=== PATIENT | female | born 1955 | race Caucasian/White ===

== ENCOUNTER 2018-01-13 15:38 | Emergency (ER) | payer OTHER ==
[2018-01-13] MEDS ORDERED: Albuterol 2.5 MG/3 ML NEB.SOL* (0.083%) INH ONE (16:02)
[2018-01-13] MEDS ORDERED: Ipratropium 0.5MG/2.5ML NEB* 0.5 MG/2.5 ML NEB.SOLN INH ONE (16:02)
--- NOTE | 2018-01-13 16:08 | UC ---
Shortness of Breath HPI - HPI Summary HPI Summary: The patient is a 62-year-old diabetic that presents here with a 3-4 day history of progressively worsening cough and shortness of breath. She states that she has obstructive sleep apnea and uses oxygen at home through her CPAP machine. Today she began to get very dyspneic and started using her oxygen during the day. He denies any fever or chills. Has been productive at times. She has had at times some left-sided chest pain below her left breast. Lat PM she had bilateral leg pain. She denies having COPD or asthma. She does state that her EKG has been abnormal in the past however she has never had one done at our institution. - History of Current Complaint Stated Complaint: DIFFICULTY BREATHING,DIZZY,COUGH Time Seen by Provider: 01/13/18 15:56 Hx Obtained From: Patient Onset/Duration: Gradual Onset, Lasting Days, Worse Since - today Current Severity: Moderate Dyspnea At: Rest Aggrevating Factors: Movement, Recumbent Position Alleviating Factors: Oxygen Associated Signs & Symptoms: Positive: Cough (Productive), Chest Pain Unrelated to Cough, Dizzy Related History: Obesity - Allergy/Home Medications Allergies/Adverse Reactions: Allergies Allergy/AdvReac Type Severity Reaction Status Date / Time No Known Allergies Allergy Verified 01/13/18 16:11 Home Medications: Home Medications Aspirin EC TAB* [Ecotrin EC Low Dose 81 MG*] 81 mg PO DAILY 01/13/18 [History Confirmed 01/13/18] Atorvastatin* [Lipitor 40 MG*] 1 tab PO BEDTIME 01/13/18 [History Confirmed 04/20] Duloxetine HCl [Cymbalta] 60 mg PO BID 01/13/18 [History Confirmed 01/13/18] Fenofibrate(NF) [Tricor(NF)] 145 mg PO DAILY 01/13/18 [History Confirmed ] Hydrochlorothiazide TAB* [Hydrodiuril TAB*] 12.5 mg PO DAILY 01/13/18 [History Confirmed 01/13/18] Inulin/Chromium Picolinate [Fiber Gummies] 2 tab PO BID 01/13/18 [History Confirmed 01/13/18] L.acidoph,Paracasei, B.lactis [Probiotic] 1 each PO DAILY 01/13/18 [History Confirmed 01/13/18] Multivitamin [Multivitamins] 1 tab PO DAILY 01/13/18 [History Confirmed 01/13/18 ] OLANzapine TAB* [Zyprexa 5 MG TAB*] 5 mg PO DAILY 01/13/18 [History Confirmed ] Oxybutynin TAB* [Ditropan TAB*] 1 tab PO BID 01/13/18 [History Confirmed ] Propranolol TAB* [Inderal TAB*] 1 tab PO BID 01/13/18 [History Confirmed ] Sitagliptin Phos/Metformin HCl [Janumet 50-1000 mg] 1 tab PO BID 01/13/18 [ History Confirmed 01/13/18] celeCOXIB CAP* [Celebrex CAP*] 1 tab PO BID 01/13/18 [History Confirmed 01/13/18 ] glyBURIDE TAB* [Diabeta TAB*] 5 mg PO DAILY 01/13/18 [History Confirmed 01/13/18 ] PMH/Surg Hx/FS Hx/Imm Hx Previously Healthy: No - TEMITOPE Endocrine History: Diabetes, Dyslipidemia Cardiovascular History: Hypertension Respiratory History: Pneumonia - Family History Known Family History: Positive: Hypertension, Diabetes Review of Systems Constitutional: Fatigue Skin: Negative Eyes: Negative ENT: Negative Respiratory: Shortness Of Breath, Cough Cardiovascular: Chest Pain - intermittently Gastrointestinal: Negative Genitourinary: Negative Motor: Negative Neurovascular: Negative Musculoskeletal: Negative Neurological: Negative Psychological: Negative All Other Systems Reviewed And Are Negative: Yes Physical Exam Triage Information Reviewed: Yes Appearance: No Pain Distress, Other: - BMI>50 Vital Signs Reviewed: Yes Eyes: Positive: Conjunctiva Clear ENT: Positive: Hearing grossly normal. Negative: Nasal drainage, Trismus, Muffled voice, Hoarse voice Neck: Positive: Supple, Nontender, No Lymphadenopathy Respiratory: Positive: Respiratory distress, Crackles - right base, Wheezing - right apex. Negative: No respiratory distress Cardiovascular: Positive: RRR, No Murmur Musculoskeletal: Positive: Edema @ - pretibial Neurological: Positive: Alert Psychological Exam: Normal Skin Exam: Normal Diagnostics - Laboratory Diagnostic Studies Completed/Ordered: FS>300 - EKG Cardiac Rate: NL Cardiac Rhythm: Sinus: Normal Ectopy: None ST Segment: Non-Specific Shortness of Breath Dx - Course Course Of Treatment: fells better on O2. unsure if neb is helping. d/w Dr Cornell. to [facility] ED via EMS - Differential Dx/Diagnosis Provider Diagnoses: cough/dyspnea/hypoxia of uncertain cause Discharge - Sign-Out/Discharge Documenting (check all that apply): Patient Departure All imaging exams completed and their final reports reviewed: No Studies - Discharge Plan Condition: Guarded Disposition: TRANS HIGHER LVL OF CARE FAC Referrals: No Primary Care Phys,NOPCP [Primary Care Provider] - - Billing Disposition and Condition Condition: GUARDED Disposition: Trans Higher Lvl of Care Fac
[2018-01-13 16:44] VITALS: BP 117/64
== END 2018-01-13 16:53 | disposition short-term general hospital (02) ==
LOC: UCEAST 15:38
DX: R05 Cough (principal); R06.00 Dyspnea, unspecified; R09.02 Hypoxemia; R07.9 Chest pain, unspecified; E11.9 Type 2 diabetes mellitus without complications; E78.5 Hyperlipidemia, unspecified; G47.33 Obstructive sleep apnea (adult) (pediatric); Z79.4 Long term (current) use of insulin; Z79.84 Long term (current) use of oral hypoglycemic drugs; Z99.89 Dependence on other enabling machines and devices
CPT/HCPCS: 93005; 99214; G0463

== ENCOUNTER 2018-01-13 17:04 | Inpatient (IN) | payer OTHER ==
[2018-01-13] MEDS ORDERED: Albuterol/Ipratropium NEB.SOL* Albuterol 2.5 MG/Ipratropium 0.5 MG 3 ML INH ONE (17:25)
[2018-01-13] MEDS ORDERED: Azithromycin IV(*) 500 MG in NS 0.9% 250 ML* 250 ML IVPB ONE (17:28)
[2018-01-13] MEDS ORDERED: methylPREDNISolone 125 MG* 2 ML VIAL IV ONE (17:28)
[2018-01-13] MEDS ORDERED: cefTRIAXone(*) 1 GM in NS 0.9% 50 ML* 50 ML IVPB ONE (17:28)
[2018-01-13] MEDS ORDERED: Aspirin 81 mg CHEW TAB* 81 MG TAB.CHEW PO ONE (17:43)
--- NOTE | 2018-01-13 17:47 | ED ---
Shortness of Breath - HPI Summary HPI Summary: This patient is a 62 year old F presenting to [facility] accompanied by her daughter with a chief complaint of SOB since 01/10/18. Pt endorses bilateral upper and lower extremity myalgia 2 days ago, continuously elevating blood glucose levels , cough, and intermittent resolved right anterior chest tightness (01/11/18) with associated diaphoresis. She denies abd pain, diarrhea, constipation, current CP or calf pain, and urinary sx. She notes that home O2 administration that she restarted 01/11/18 did not do much to alleviate sx, but a breathing tx at did help sx. Pt notes her cough aggravates sx. Pt notes that she was given 02 for episode of hypoxia a few years ago, but then stopped because she felt no sx until just recently. She denies PMHx DVT or PE, and she endorses PMHx DM, HLD, and HTN. - History of Current Complaint Chief Complaint: EDShortnessOfBreath Time Seen by Provider: 01/13/18 17:20 Hx Obtained From: Patient Onset/Duration: Gradual Onset, Lasting Days, Still Present Timing: Constant Current Severity: Moderate Dyspnea At: Rest Aggrevating Factors: Nothing Alleviating Factors: Oxygen, Other - breathing tx Associated Signs & Symptoms: Cough (Nonproductive), Chest Pain Unrelated to Cough - tightness, resolved, Diaphoresis, Calf Pain/Swelling - bilateral, resolved Related History: Obesity - Allergy/Home Medications Allergies/Adverse Reactions: Allergies Allergy/AdvReac Type Severity Reaction Status Date / Time No Known Allergies Allergy Verified 01/13/18 16:11 PMH/Surg Hx/FS Hx/Imm Hx Endocrine/Hematology History: Reports: Hx Diabetes - niDDm Denies: Hx Thyroid Disease Cardiovascular History: Reports: Hx Hypercholesterolemia, Hx Hypertension Respiratory History: Denies: Hx Asthma, Hx Chronic Obstructive Pulmonary Disease (COPD) GI History: Denies: Hx Ulcer Sensory History: Denies: Hx Legally Blind, Hx Deafness Opthamlomology History: Denies: Hx Legally Blind EENT History: Denies: Hx Deafness Psychiatric History: Denies: Hx Autism, Hx Schizophrenia - Surgical History Surgery Procedure, Year, and Place: BILATERAL KNEE REPLACEMENT. PARTICIAL HYSTER. CHOLECYSTEMY. TONSILLECTOMY. HEMMRHOIDECTOMY. CPAP AT NIGHT Infectious Disease History: No Infectious Disease History: Denies: Hx Hepatitis, Hx Human Immunodeficiency Virus (HIV), Traveled Outside the [place] in Last 30 Days - Family History Known Family History: Positive: Hypertension, Diabetes - Social History Occupation: Disabled Alcohol Use: Rare Substance Use Type: Reports: None Smoking Status (MU): Former Smoker Review of Systems Positive: Skin Diaphoresis Positive: Chest Pain Positive: Shortness Of Breath, Cough Negative: Abdominal Pain, Diarrhea Positive: no symptoms reported Positive: Myalgia - bilateral upper and lower extremities, resolved All Other Systems Reviewed And Are Negative: Yes Physical Exam - Summary Physical Exam Summary: General: well-appearing, no pain distress Skin: warm, color reflects adequate perfusion, dry Head: normal Eyes: EOMI, AN ENT: normal Neck: supple, non-tender Respiratory: Wheezing at bases, breath sounds present Cardiovascular: RRR Abdomen: soft, non-tender Bowel: present Musculoskeletal: normal, strength/ROM intact Neurological: sensory/motor intact, A&O x3 Psychological: affect/mood appropriate Triage Information Reviewed: Yes Vital Signs On Initial Exam: Initial Vitals Resp 26 01/13/18 17:09 Vital Signs Reviewed: Yes Diagnostics - Vital Signs Vital Signs Temp Pulse Resp BP Pulse Ox 01/13/18 17:34 62 20 92 01/13/18 17:13 97.9 F 74 18 167/80 90 01/13/18 17:10 64 28 167/80 92 01/13/18 17:09 26 - Laboratory Result Diagrams: 01/13/18 17:57 01/13/18 17:57 Lab Statement: Any lab studies that have been ordered have been reviewed, and results considered in the medical decision making process. - Radiology CXR Xray Interpretation: Positive (See Comments) Radiology Interpretation Completed By: ED Physician - Infiltrate on right side. Pending official report. - CT CTA Chest/thorax CT Interpretation: Positive (See Comments) CT Interpretation Completed By: Radiologist - . No visible acute pulmonary embolism but there is limited evaluation of subsegmental branches of the arteries because of respiratory motion artifact. 2. There is bilateral lung opacity, particularly in the right lower lobe, suspicious for pneumonitis and/ or pulmonary edema. 3. There is mild mediastinal lymphadenopathy. Dr. Cornell has reviewed this report. - EKG 1737 Cardiac Rate: NL - 62 EKG Rhythm: Sinus Rhythm Ectopy: None EKG Interpretation: non-specific intraventricular conduction delay, flipped T waves in antleads Re-Evaluation - Re-Evaluation First Eval Re-Evaluation Time: 18:58 Change: Unchanged Comment: Discussed (+) lab results and XR, PNA, admission. O2 sat at 92%. Course/Dx - Course Course Of Treatment: ADMIT HOSPITALIST. 30ML/KG BOLUS NOT GIVEN IN ED DUE TO CONCERN OF CHF THE CAUSE OF HYPOXIA. CRITICAL CARE TIME LESS THAN 30 MINUTES. - Diagnoses Provider Diagnoses: Pneumonia - Physician Notifications Discussed Care of Patient With: Vika Falk Time Discussed With Above Provider: 19:00 Instructed by Provider To: Other - Accepts admission. Discharge - Sign-Out/Discharge Documenting (check all that apply): Patient Departure - admit - Discharge Plan Condition: Fair Disposition: ADMITTED TO [facility] - Billing Disposition and Condition Condition: FAIR Disposition: Admitted to [facility] - Attestation Statements Document Initiated by Scribe: Yes Documenting Scribe: Julien Collazo Provider For Whom Conniee is Documenting (Include Credential): Dr. Garrick Cornell MD Scribe Attestation: Julien Schneider, scribed for Dr. Garrick Cornell MD on 01/13/18 at 2204. Scribe Documentation Reviewed: Yes Provider Attestation: The documentation as recorded by the Julien colvin accurately reflects the service I personally performed and the decisions made by me, Dr. Garrick Cornell MD
[2018-01-13 18:19] LABS: ABS Basophils 0 10^3/ul (0-0.2); ABS Eosinophils 0.1 10^3/ul (0-0.6); ABS Lymphocytes 0.7 10^3/ul (1.0-4.8); ABS Monocytes 0.6 10^3/ul (0-0.8); ABS Neutrophils 7.5 10^3/ul (1.5-7.7); ABS Nucleated RBC 0 10^3/ul; Eosinophil % 1.4 % (0-6); Hematocrit 35 % (35-47); Hemoglobin 11.8 g/dl (12.0-16.0); Lymphocyte % 8.1 % (25-47); Mean Corpuscular HGB Conc 33 g/dl (31-36); Mean Corpuscular Hemoglobin 28 pg (27-31); Mean Corpuscular Volume 83 fL (80-97); Mean Platelet Volume 8.3 um3 (7.4-10.4); Nucleated Red Blood Cells % 0; Platelet Count 275 10^3/ul (150-450); Red Blood Count 4.24 10^6/ul (4.00-5.40); Red Cell Distribution Width 14 % (10.5-15); White Blood Count 9.1 10^3/ul (3.5-10.8)
[2018-01-13 18:28] LABS: INR 1.14 (0.77-1.02)
[2018-01-13 18:39] LABS: EGFR Non-African American 71.2 (>60)
[2018-01-13] MEDS ORDERED: Magnesium Sulfate 2 GM IV* 2 GM/50 ML BAG IVPB ONE (18:51)
[2018-01-13] MEDS ORDERED: Iodixanol* (CONTRAST) 320 MG/ML 100 ML SDV IV ONE (19:19)
[2018-01-13] MEDS ORDERED: Albuterol 2.5 MG/3 ML NEB.SOL* (0.083%) INH PRN (19:52)
[2018-01-13] MEDS ORDERED: Dextrose 50% Syringe 50 ML* 25 GM/50 ML SYRINGE IV PUSH PRN ×2 (19:57)
--- NOTE | 2018-01-13 20:03 | RAD ---
EXAM: CT Angiography Chest With Intravenous Contrast CLINICAL HISTORY: 62 years old, female; Signs and symptoms; Shortness of breath; Patient HX: R/O pe; Additional info: SOB, positive ddimer TECHNIQUE: Axial computed tomographic angiography images of the chest with intravenous contrast using pulmonary embolism protocol. All CT scans at this facility use at least one of these dose optimization techniques: automated exposure control; mA and/or kV adjustment per patient size (includes targeted exams where dose is matched to clinical indication); or iterative reconstruction. MIP reconstructed images were created and reviewed. Coronal and sagittal reformatted images were created and reviewed. CONTRAST: 96 mL of VISI 320 administered intravenously. COMPARISON: No relevant prior studies available. FINDINGS: Pulmonary arteries: No visible acute pulmonary embolism but there is limited evaluation of subsegmental branches of the arteries because of respiratory motion artifact. Aorta: There are atherosclerotic aortic and coronary artery calcifications. No thoracic aortic aneurysm. Lungs: There is bilateral lung opacity, particularly in the right lower lobe suspicious for pneumonitis and/or pulmonary edema. Pleural space: Unremarkable. No significant effusion. No pneumothorax. Heart: See above. Bones/joints: There are degenerative changes of the spine. No acute fracture. No dislocation. Soft tissues: Unremarkable. Lymph nodes: There is mild mediastinal lymphadenopathy. Spleen: There is splenomegaly. IMPRESSION: 1. No visible acute pulmonary embolism but there is limited evaluation of subsegmental branches of the arteries because of respiratory motion artifact. 2. There is bilateral lung opacity, particularly in the right lower lobe, suspicious for pneumonitis and/or pulmonary edema. 3. There is mild mediastinal lymphadenopathy.
[2018-01-13] MEDS ORDERED: Ondansetron INJ* 2 MG/ML VIAL IV PRN (20:11)
[2018-01-13] MEDS ORDERED: Senna TAB PO PRN (20:11)
[2018-01-13] MEDS ORDERED: Docusate CAP* 100 MG PO PRN (20:11)
[2018-01-13] MEDS ORDERED: Acetaminophen TAB* 325 MG PO PRN (20:11)
[2018-01-13] MEDS ORDERED: Al Hydrox/Mg Hydrox/Simet LIQ* 30 ML UDC PO PRN (20:11)
[2018-01-13] MEDS ORDERED: Insulin GLARGINE(*) 1 UNITS UNIT SUBCUT SCH (21:00)
--- NOTE | 2018-01-13 22:11 | HP ---
CC: [facility].* HISTORY AND PHYSICAL: DATE OF ADMISSION: 01/13/18 TIME OF EVALUATION: 1999. PRIMARY CARE PHYSICIAN: [facility]. CHIEF COMPLAINT: Shortness of breath. HISTORY OF PRESENT ILLNESS: This is a 62-year-old female with past medical history of diabetes, hypertension, obstructive sleep apnea who presented to the emergency room from urgent care with shortness of breath for the past 2 days. The patient states a year and a half ago, she had a similar presentation where she became short of breath and was admitted to [place] and they said it was not pneumonia or COPD, but she was discharged home on oxygen at that time. She has not needed oxygen since that hospitalization; however, for the past 2 days, she has been shortness of breath and dizzy. Today, it was worse where she was short of breath at rest. She has been congested with productive cough with sick contacts. She takes care of her grandchildren who have also been sick. Patient does state she is known to choke and aspirate on foods. She had a swallow evaluation several years ago that was unremarkable. She had the oxygen from her prior admission, so started using that again that did help somewhat. Last evening, she had full body aches and pins and needles throughout the night with difficulty sleep, which seems resolved in the morning. No fevers or chills. No nausea, vomiting, diarrhea. No abdominal pain. No urinary symptoms. No lower extremity swelling. No changes in her weight. Otherwise, review of systems is negative. The patient denies using inhalers in the past or having any issues with her lungs. In the emergency room, the patient had labs, imaging. She was given Solu-Medrol 125 mg, 2 g of magnesium, ceftriaxone 1 g, azithromycin 500 mg, aspirin 324 mg, and a DuoNeb and was referred to the hospitalist service for further evaluation. The patient states she feels somewhat better after her breathing treatment. PAST MEDICAL HISTORY: 1. Diabetes. 2. Hypertension. 3. Obstructive sleep apnea, on CPAP setting of 2. 4. Hyperlipidemia. 5. Arthritis. 6. Depression. MEDICATIONS: 1. Propranolol 40 mg p.o. b.i.d. 2. Oxybutynin 5 mg p.o. b.i.d. 3. Atorvastatin 40 mg daily at bedtime. 4. Celebrex 100 mg p.o. b.i.d. 5. Glyburide 5 mg daily. 6. Janumet one tab p.o. b.i.d. 7. Olanzapine 5 mg daily. 8. Multivitamin daily. 9. Probiotic daily. 10. Fiber Gummies 2 tablets p.o. b.i.d. 11. Hydrochlorothiazide 12.5 mg p.o. daily. 12. Fenofibrate 145 mg p.o. daily. 13. Cymbalta 60 mg p.o. b.i.d. 14. Aspirin 81 mg daily. ALLERGIES: No known drug allergies. SOCIAL HISTORY: The patient lives with her daughter, Carola Vines, and her grandson. She is independent of her ADLs. She was a remote smoker in her teenage years, light smoker. No history of alcohol or illicit drug use. She watches her young 3 grandchildren. Code status, full code. FAMILY HISTORY: Mother at age 55 from complications postoperatively with a PE. Father , unknown. REVIEW OF SYSTEMS: A 14-point review of systems as mentioned in the HPI, otherwise negative. PHYSICAL EXAMINATION GENERAL: In no acute distress, mildly ill appearing with her daughter sitting at the bedside. VITAL SIGNS: Temp 97.9, pulse rate 70, respiratory rate 14, oxygen saturation 93% on 4 L, blood pressure 144/77. HEENT: Head: Normocephalic. Pupils are equal and reactive. Oropharynx: Mucous membranes are moist. Positive postnasal drip noted. NECK: Supple. No lymphadenopathy. RESPIRATORY: Coarse rhonchorous breath sounds bilaterally with bilateral expiratory wheezing audible, adventitious lung sounds. CARDIAC: Regular rate and rhythm. Soft systolic murmur heard throughout. ABDOMEN: Morbidly obese, soft, nontender, nondistended. EXTREMITIES: Chronic varicosities in her bilateral lower extremities. No asymmetry. Trace edema. +2 DPs. NEUROLOGICAL: Alert and oriented x3. No gross focal neurologic deficits. LABORATORY DATA: White count 9.1, hemoglobin 11.8, hematocrit 35, platelets 275. INR is 1.14. D-dimer is 1003. Sodium 136, potassium 3.5, chloride 96, bicarb 31, BUN 18, creatinine 0.81, glucose 278. Calcium 10.4. Magnesium 1.5. Total bili 1.2, AST 53, ALT 81, alk phos 123. CRP is 345. BNP is 266. TSH 1.73. RADIOGRAPHIC DATA: Chest x-ray shows opacity in the right middle lobe with some mild interstitial markings. CTA of the chest, no visible acute pulmonary embolism, but there is limited evaluation in the subsegmental branches of the arteries because of respiratory motion artifact. There is bilateral lung opacities particularly in the right lower lobe suspicious for pneumonitis and/ or pulmonary edema. There is mild mediastinal lymphadenopathy. EKG shows normal sinus rhythm, inverted T waves and nonspecific T wave changes. ASSESSMENT AND PLAN: This is a 62-year-old female with a past medical history of diabetes, hypertension who presents to the emergency room with acute onset of shortness of breath in the setting of cough, congestion, and sick contacts. 1. Shortness of breath. Assessment: Her CTA does not show a significant PE, but does show bilateral lung opacities suspicious for pneumonitis and/or pulmonary edema. This is likely aspiration pneumonitis/pneumonia with her history with possible concomitant congestive heart failure. Plan: We will admit her to telemetry. We will continue to trend her troponin. Check an echocardiogram. We will limit her fluid intake and hold off on further IVFs. We will obtain a sputum culture and follow up on the blood cultures. Continue her on ceftriaxone, azithromycin and add flagyl. I am going to continue on prednisone and albuterol nebulizer. May benefit from diuresis, but we will hold off at this time as she appears comfortably lying flat in the gurney. We will also check an echocardiogram. We will hold off on continuing IV fluids. Will order speech therapy swallow eval and esophagram to assess for microaspiration/macroaspiration 2. Transaminitis. I suspect this may be due to GAONA versus hepatic congestion as she does have underlying pulmonary edema. As mentioned, we will check an echo and repeat her liver enzymes in the morning. 3. Elevated calcium. We will repeat this in the morning. 4. Chronic medical problems. Diabetes. She has an elevated glucose this evening. We will start her on Lantus. Check a hemoglobin A1c and place her on a lispro sliding scale. 5. Hypertension. Blood pressures are controlled. We will hold her hydrochlorothiazide for now in the setting of infectious etiology. I will continue her propranolol. 6. Hyperlipidemia. We will continue her Lipitor. Check a lipid panel in the morning. Continue her oxybutynin. 7. Depression. Continue her Cymbalta. 8. FEN. The patient is on diabetic diet. 9. DVT prophylaxis. She scores high risk. We will place her on heparin subcu t.i.d. 10. Code status: Full code. PATIENT TIME: Greater than 60 minutes were spent doing the history and physical , more than half the time spent in direct patient contact. [id number]/CPS #: [id number] [place]
[2018-01-13] MEDS: metroNIDAZOLE IV 500 MG/100ML* 500 MG/100 ML BAG IVPB SCH (22:51)
[2018-01-13] MEDS: Heparin VIAL(*) 5000 UNITS/ML VIAL (FIVE THOUSAND) SUBCUT SCH (22:57)
[2018-01-13] MEDS: DULoxetine DR CAP* 30 MG CAP.DR PO SCH (23:00)
[2018-01-13] MEDS: Oxybutynin TAB* 5 MG PO SCH (23:00)
[2018-01-13] MEDS: Atorvastatin* 40 MG TAB PO SCH (23:00)
[2018-01-13] MEDS: Propranolol TAB* 40 MG PO SCH (23:01)
[2018-01-13] MEDS: celeCOXIB CAP* 100 MG PO SCH (23:02)
[2018-01-14] MEDS: Heparin VIAL(*) 5000 UNITS/ML VIAL (FIVE THOUSAND) SUBCUT SCH ×3 (06:16→21:03)
[2018-01-14 06:26] LABS: ABS Basophils 0 10^3/ul (0-0.2); ABS Eosinophils 0 10^3/ul (0-0.6); ABS Lymphocytes 0.4 10^3/ul (1.0-4.8); ABS Monocytes 0.3 10^3/ul (0-0.8); ABS Neutrophils 9.1 10^3/ul (1.5-7.7); ABS Nucleated RBC 0 10^3/ul; Eosinophil % 0.1 % (0-6); Hematocrit 34 % (35-47); Hemoglobin 11.4 g/dl (12.0-16.0); Lymphocyte % 4.3 % (25-47); Mean Corpuscular HGB Conc 33 g/dl (31-36); Mean Corpuscular Hemoglobin 28 pg (27-31); Mean Corpuscular Volume 83 fL (80-97); Mean Platelet Volume 8.5 um3 (7.4-10.4); Nucleated Red Blood Cells % 0; Platelet Count 294 10^3/ul (150-450); Red Blood Count 4.13 10^6/ul (4.00-5.40); Red Cell Distribution Width 14 % (10.5-15); White Blood Count 9.8 10^3/ul (3.5-10.8)
[2018-01-14 06:44] LABS: EGFR Non-African American 95.1 (>60)
--- NOTE | 2018-01-14 07:31 | RAD ---
INDICATION: Shortness of breath. COMPARISON: None. TECHNIQUE: Single AP portable view of the chest was obtained. FINDINGS: Image quality is compromised due to the relative inferiority of a portable chest x-ray. There is a mild degree of cardiomegaly. There are patchy densities obscuring the bilateral lung bases. There is bilateral costophrenic angle blunting. The pulmonary vasculature is mildly engorged and indistinct. Visualized bones are normal for the patient's age. IMPRESSION: Depending on the patient's clinical presentation chest x-ray findings could be consistent with cardiogenic pulmonary edema versus multifocal pneumonia. R1
[2018-01-14] MEDS: Insulin LISPRO* 1 UNITS UNIT SUBCUT SCH ×6 (07:47→18:09)
[2018-01-14] MEDS: metroNIDAZOLE IV 500 MG/100ML* 500 MG/100 ML BAG IVPB SCH (07:48)
[2018-01-14] MEDS ORDERED: Insulin LISPRO* 1 UNITS UNIT SUBCUT ONE ×3 (08:00→17:59)
[2018-01-14] MEDS: celeCOXIB CAP* 100 MG PO SCH (08:10)
[2018-01-14] MEDS: Oxybutynin TAB* 5 MG PO SCH ×2 (08:13→21:06)
[2018-01-14] MEDS: DULoxetine DR CAP* 30 MG CAP.DR PO SCH ×2 (08:13→21:05)
[2018-01-14] MEDS: Propranolol TAB* 40 MG PO SCH ×2 (08:14→21:06)
[2018-01-14] MEDS: OLANzapine TAB* 5 MG PO SCH (08:14)
[2018-01-14] MEDS: Aspirin EC TAB* 81 MG TAB.EC PO SCH (08:14)
--- NOTE | 2018-01-14 08:26 | PN ---
Subjective Date of Service: 01/14/18 Interval History: Ms. Mohinder roe Objective Active Medications: Acetaminophen (Tylenol Tab*) 650 mg PO Q4H PRN Al Hydrox/Mg Hydrox/Simethicone (Maalox Plus*) 30 ml PO Q6H PRN Albuterol (Ventolin 2.5 Mg/3 Ml Neb.Gail*) 2.5 mg INH Q2H PRN Aspirin (Aspirin Ec Tab*) 81 mg PO DAILY SUAD Atorvastatin Calcium (Lipitor*) 40 mg PO BEDTIME SUAD Celecoxib (Celebrex Cap*) 100 mg PO BID SUAD Dextrose (D50w Syringe 50 Ml*) 12.5 gm IV PUSH .FOR FS < 60 - SS PRN Docusate Sodium (Colace Cap*) 100 mg PO BID PRN Duloxetine HCl (Cymbalta Cap*) 60 mg PO BID SUAD Heparin Sodium (Porcine) (Heparin Vial(*)) 5,000 units SUBCUT Q8HR SUAD Ceftriaxone Sodium 1 gm/ (Sodium Chloride) 50 mls @ 200 mls/hr IVPB Q24H SUAD Azithromycin 250 mg/ Sodium (Chloride) 250 mls @ 250 mls/hr IVPB Q24H SUAD Metronidazole/Sodium Chloride (Flagyl 500 Mg Ivpb*) 500 mg in 100 mls @ 100 mls /hr IVPB 0200,1000,1800 SUAD Insulin Glargine (Lantus(*)) 10 units SUBCUT Q24H SUAD Insulin Human Lispro (Humalog*) 0 units SUBCUT AC SUAD; Protocol Insulin Human Lispro (Humalog*) 0 units SUBCUT AC SUAD; Protocol Olanzapine (Zyprexa Tab*) 5 mg PO DAILY SUAD Ondansetron HCl (Zofran Inj*) 4 mg IV Q4H PRN Oxybutynin Chloride (Ditropan Tab*) 5 mg PO BID SUAD Prednisone (Deltasone Tab*) 40 mg PO DAILY SUAD Propranolol HCl (Inderal Tab*) 40 mg PO BID SUAD Senna (Senokot Tab*) 1 tab PO BID PRN Vital Signs: Temp Pulse Resp BP Pulse Ox 97.4 F 68 20 130/66 93 01/14/18 07:27 01/14/18 08:12 01/14/18 07:27 01/14/18 07:27 01/14/18 07:27 Oxygen Devices in Use Now: Nasal Cannula Appearance: Female Result Diagrams: 01/14/18 06:16 01/14/18 06:16 Assess/Plan/Problems-Billing Assessment: Ms. Vines is a 62 yo F with a PMH of DM, HTN, and TEMITOPE who was admitted with community acquired pneumonia. - Patient Problems (1) SOB (shortness of breath) Comment: - Suspect community acquired pneumonia based on CT chest findings and symptoms, no evidence of aspiration. - Appreciate ID consult. Plan for ceftriaxone and azithromcyin. - Wean O2 as tolerated. (2) Diabetes Comment: - BGs 400s, likely due to steroids, steroids d/c'd. - Continue lispro SSI coverage. Glyburide held. (3) Hypertension Comment: - SBP 130s. - Continue propanolol. (4) Hyperlipidemia Comment: - Atorvastatin. (5) DVT prophylaxis Comment: - Heparin SQ. (6) Full code status Comment:
[2018-01-14] MEDS ORDERED: predniSONE TAB* 20 MG PO SCH (09:00)
[2018-01-14] MEDS ORDERED: metroNIDAZOLE IV 500 MG/100ML* 500 MG/100 ML BAG IVPB SCH (10:00)
[2018-01-14] MEDS: cefTRIAXone(*) 1 GM in NS 0.9% 50 ML* 50 ML IVPB SCH (10:15)
[2018-01-14 10:22] LABS: Urine Appearance Cloudy; Urine Blood Negative (Negative); Urine Color Yellow; Urine Ketones Trace (Negative); Urine Protein 1+(30 mg/dL) (Negative); Urine Red Blood Cell Trace(0-2/hpf) (Absent); Urine Urobilinogen Negative (Negative); Urine White Blood Cell Trace(0-5/hpf) (Absent)
[2018-01-14] MEDS: Azithromycin IV(*) 250 MG in NS 0.9% 250 ML* 250 ML IVPB SCH (11:00)
--- NOTE | 2018-01-14 15:41 | ECHO ---
Patient: VICKY BABB [facility] Rec#: [id number] : 1955 Date: 01/14/2018 Age: 62y Height: 160 cm / 63.0 in Weight: 159 kg / 350.4 lbs Sex: F BSA: 2.45 Room#: 434 Admit Date#: 01/13/2018 Type: Inpatient Referring: Vika Falk Reading: Jolie Thapa MD Mononitrotoluene Operator: Sharron Aguila RDCS,RDMS Transthoracic Echocardiogram Indication: CHF BP: 113/61 HR: 65 Rhythm: NSR Findings History: DM, HTN, HLD Technical Comments: The study quality is fair. Left Ventricle: The left ventricular chamber size is normal. Mild concentric left ventricular hypertrophy is observed. The estimated ejection fraction is 50-55%. There is septal flattening of the interventricular septum consistent with right ventricular volume or pressure overload. There is no consistent Doppler evidence of clinically significant diastolic dysfunction. Left Atrium: The left atrium is mildly dilated. Right Ventricle: The right ventricle is mild to moderately dilated. The right ventricular global systolic function is normal. Right Atrium: The right atrium is mild to moderately dilated. Aortic Valve: The aortic valve leaflets are mildly thickened. There is no evidence of aortic regurgitation. There is mild aortic stenosis. Mitral Valve: There is mitral annular calcification. The mitral valve leaflets are mildly thickened. There is a trace of mitral regurgitation. There is no evidence of mitral stenosis. Tricuspid Valve: The tricuspid valve leaflets are normal. There is no evidence of tricuspid valve regurgitation. Unable to estimate the right ventricular systolic pressure. Pulmonic Valve: There is no evidence of pulmonic valve thickening. There is a trace pulmonic regurgitation. Pericardium: There is no significant pericardial effusion. Aorta: There is mild dilatation of the ascending aorta. There is no dilatation of the aortic arch. The aortic root is normal in size. Pulmonary Artery: The main pulmonary artery is not well visualized. Venous: The inferior vena cava is dilated. There is less than 50% respiratory change in the inferior vena cava dimension. Summary: There was not any prior study for comparison. Conclusions The left ventricular chamber size is normal. Mild concentric left ventricular hypertrophy is observed. The estimated ejection fraction is 50-55%. There is septal flattening of the interventricular septum consistent with right ventricular volume or pressure overload. There is no consistent Doppler evidence of clinically significant diastolic dysfunction. The left atrium is mildly dilated. The right ventricle is mild to moderately dilated. The right atrium is mild to moderately dilated. There is mild aortic stenosis. There is a trace of mitral regurgitation. There is no evidence of tricuspid valve regurgitation. Unable to estimate the right ventricular systolic pressure. There is mild dilatation of the ascending aorta. Measurements Name Value Normal Range RVIDd (AP) 2D 3.8 cm (0.9 - 2.6) RVDdMajor (2D) 3.7 cm (2.2 - 4.4) RAd ISD 4CH 5.8 cm (3.4 - 4.9) RA (A4C)W 3.7 cm (2.9 - 4.6) IVSd (2D) 1.2 cm (0.6 - 1) LVPWd (2D) 1.3 cm (0.6 - 1) LVIDd (2D) 4.5 cm (3.6 - 5.4) LVIDs (2D) 3.3 cm - LV FS (2D) 37 % (25 - 45) Aortic Annulus 2 cm (1.4 - 2.6) Ao root diameter (2D) 2.7 cm (2.1 - 3.5) Ascending Ao 3.7 cm (2.1 - 3.4) Aortic arch 3.1 cm (1.8 - 3.4) LA dimension (AP) 2D 4.2 cm (2.3 - 3.8) LAd ISD 4CH 5.5 cm (2.9 - 5.3) LA ISD 4CH W 4.5 cm (2.5 - 4.5) Name Value Normal Range LA ESV BP (A/L) index 29 ml/m2 - Name Value Normal Range MV E-wave Vmax 1.2 m/sec - MV deceleration time 306 msec - MV A-wave Vmax 0.9 m/sec - MV E:A ratio 1.3 ratio - LV septal e' Vmax 0.07 m/sec - LV lateral e' Vmax 0.08 m/sec - LV E:e' septal ratio 17 ratio - LV E:e' lateral ratio 15 ratio - Name Value Normal Range AV Vmax 2.4 m/sec - AV VTI 60 cm - AV peak gradient 23 mmHg - AV mean gradient 13 mmHg - LVOT diameter 2 cm - LVOT Vmax 1.2 m/sec - LVOT VTI 31.5 cm - LVOT peak gradient 6 mmHg - LVOT mean gradient 4 mmHg - DOI (VTI) 0.5 ratio - ZACHERY (continuity Vmax) 1.6 cm2 - ZACHERY (continuity VTI) 1.6 cm2 - ALISHA Vmax 0.7 m/sec - Name Value Normal Range MV Vmax 1.4 m/sec - MV VTI 48 cm - MV peak gradient 8 mmHg - MV mean gradient 3 mmHg - MV PHT 114 msec - MVA (PHT) 1.9 cm2 - MVA (continuity VTI) 2.1 cm2 - Name Value Normal Range IVC diameter 2.3 cm - Name Value Normal Range PV Vmax 0.7 m/sec - PV peak gradient 2 mmHg -
[2018-01-14] MEDS ORDERED: Dextrose 50% Syringe 50 ML* 25 GM/50 ML SYRINGE IV PUSH PRN (16:59)
--- NOTE | 2018-01-14 18:13 | PN ---
Subjective Date of Service: 01/14/18 Interval History: Ms. Vines states that she is feeling better today. She is short of breath with a cough and is requiring oxygen but does feel better. She denies chest pain. She is tolerating oral intake well. Objective Active Medications: Acetaminophen (Tylenol Tab*) 650 mg PO Q4H PRN Al Hydrox/Mg Hydrox/Simethicone (Maalox Plus*) 30 ml PO Q6H PRN Albuterol (Ventolin 2.5 Mg/3 Ml Neb.Gail*) 2.5 mg INH Q2H PRN Aspirin (Aspirin Ec Tab*) 81 mg PO DAILY SUAD Atorvastatin Calcium (Lipitor*) 40 mg PO BEDTIME SUAD Dextrose (D50w Syringe 50 Ml*) 12.5 gm IV PUSH .FOR FS < 60 - SS PRN Docusate Sodium (Colace Cap*) 100 mg PO BID PRN Duloxetine HCl (Cymbalta Cap*) 60 mg PO BID SUAD Heparin Sodium (Porcine) (Heparin Vial(*)) 5,000 units SUBCUT Q8HR SUAD Ceftriaxone Sodium 1 gm/ (Sodium Chloride) 50 mls @ 200 mls/hr IVPB Q24H SUAD Azithromycin 250 mg/ Sodium (Chloride) 250 mls @ 250 mls/hr IVPB Q24H SUAD Insulin Glargine (Lantus(*)) 15 units SUBCUT Q24H SUAD Insulin Human Lispro (Humalog*) 0 units SUBCUT AC SUAD; Protocol Insulin Human Lispro (Humalog*) 0 units SUBCUT AC SUAD; Protocol Olanzapine (Zyprexa Tab*) 5 mg PO DAILY SUAD Ondansetron HCl (Zofran Inj*) 4 mg IV Q4H PRN Oxybutynin Chloride (Ditropan Tab*) 5 mg PO BID SUAD Propranolol HCl (Inderal Tab*) 40 mg PO BID SUAD Senna (Senokot Tab*) 1 tab PO BID PRN Vital Signs: Temp Pulse Resp BP Pulse Ox 98.1 F 53 24 120/58 93 01/14/18 15:18 01/14/18 15:18 01/14/18 15:18 01/14/18 15:18 01/14/18 15:18 Oxygen Devices in Use Now: Nasal Cannula Appearance: Female sitting up in bed, eating dinner in NAD Eyes: No Scleral Icterus Ears/Nose/Mouth/Throat: Mucous Membranes Moist Neck: Trachea Midline Respiratory: Symmetrical Chest Expansion and Respiratory Effort, - - Musical tones and rhonchi in right middle lobe, otherwise clear Cardiovascular: NL Sounds; No Murmurs; No JVD, No Edema Abdominal: NL Sounds; No Tenderness; No Distention Lymphatic: No Cervical Adenopathy Extremities: No Edema Skin: No Rash or Ulcers Neurological: Alert and Oriented x 3, NL Muscle Strength and Tone Nutrition: Taking PO's Result Diagrams: 01/14/18 06:16 01/14/18 06:16 Microbiology and Other Data: Microbiology 01/14/18 09:55 Legionella Urinary Antigen - Final Urine Negative Legionella Antigen Streptococcus pneumoniae Ag Screen - Final Negative S. pneumo Antigen Assess/Plan/Problems-Billing Assessment: Ms. Vines is a 62 yo F with a PMH of DM, HTN, and TEMITOPE who was admitted with community acquired pneumonia. - Patient Problems (1) SOB (shortness of breath) Comment: - Suspect atypical pneumonia based on CT chest findings and symptoms. - Appreciate speech eval, no evidence of aspiration on bedside swallow. Does have history of globus sensation and food sticking in her esophagus that she will cough up. Will order swallow function xray for further eval. - Appreciate ID consult. Plan for ceftriaxone and azithromcyin. - Wean O2 as tolerated. (2) Diabetes Comment: - BGs 400s, likely due to steroids, steroids d/c'd. HgbA1c 7.2. - Continue lispro SSI coverage and lantus (not on lantus routinely). Glyburide held. (3) Hypertension Comment: - SBP 130s. - Continue propanolol. (4) Hyperlipidemia Comment: - Continue atorvastatin. (5) DVT prophylaxis Comment: - Heparin SQ. (6) Full code status Comment: Status and Disposition: Inpatient. Anticipate discharge to home when medically.
--- NOTE | 2018-01-14 19:47 | CONS ---
CONSULTATION REPORT: DATE OF CONSULT: 01/14/18 REQUESTING PHYSICIAN: Mag Choudhury NP. CONSULTING SERVICE: Infectious Disease. REASON FOR CONSULT: Pneumonia. IMPRESSION: 1. Four days of progressive cough, malaise, and fever with diffuse body aches. Chest x-ray showed a right base infiltrate. She had no leukocytosis. She had ALT of 81. We do not have any prior labs to compare them to. C-reactive protein of 350. CT scan showed a dense right lower lobe infiltrate. She has community- acquired pneumonia. She does not endorse symptoms of coughing or choking while eating or drinking. 2. Type 2 diabetes. 3. Morbid obesity. 4. Normocytic anemia. RECOMMENDATIONS: 1. Continue ceftriaxone and azithromycin. We will stop the Flagyl. 2. Check an SPEP. HISTORY OF PRESENT ILLNESS: This 62-year-old woman admitted with progressive malaise, dyspnea, and semi-productive cough. It started on Thursday. Because of worsening symptoms, she came to the hospital on 01/13/18. She had the x-ray and CT findings as above. White blood cell count was normal. She has had no fevers. She did require supplemental oxygen and was started on 4 L yesterday, as she was sating in the high 80s, low 90s in the emergency room. She does not usually have a cough and does not choke or cough when she eats or drinks. Has not been told she has a swallowing problem in the past. She has had no stroke. She has not had pneumonia requiring hospitalization recently. PAST MEDICAL HISTORY: 1. Type 2 diabetes. 2. Hypertension. 3. Morbid obesity. 4. Obstructive sleep apnea, on CPAP. 5. Hyperlipidemia. 6. Osteoarthritis. 7. Depression. MEDICATIONS: 1. Tylenol. 2. Albuterol inhaler. 3. Aspirin. 4. Lipitor. 5. Celebrex. 6. Duloxetine. 7. Docusate. 8. Prednisone 4 mg a day. 9. Insulin glargine. 10. Insulin lispro. 11. Magnesium sulfate. 12. Flagyl 500 mg every 8 hours. 13. Olanzapine. 14. Oxybutynin. 15. Propranolol. 16. Ceftriaxone 1 g a day. 17. Azithromycin 250 mg a day. ALLERGIES: No known drug allergies. FAMILY HISTORY: No recurrent infections or tuberculosis. Her mom at 55 from pulmonary embolism. Father , unknown causes. SOCIAL HISTORY: She lives with her daughter and grandson. She is a past smoker. No injection drugs. REVIEW OF SYSTEMS: All negative to 14-point review of systems, except as noted above in the history of present illness. PHYSICAL EXAM: Temperature is 36.3, heart rate is 60, respiratory rate 20, blood pressure 130/66, oxygen saturation 93% on 3 L. In general, she is awake, not in distress. Neurologic: She is oriented x3. [place] all commands. HEENT : There is no conjunctival hemorrhage. Oropharynx without lesions. Neck is supple without mass. Heart is regular rate and rhythm without murmurs, rubs, or gallops. Lungs: Decreased breath sounds at the right base without egophony or rales. Abdomen: Soft, nontender, nondistended. There are bowel sounds present. Skin: There is no rash or splinter hemorrhage. Musculoskeletal: There is no spine tenderness to palpation. LABORATORY DATA: Creatinine 0.6. White blood cell count 9, hemoglobin 11, platelets 294. Please see impressions and recommendations as outlined above, which I have discussed with Mag Choudhury NP. Thanks for asking me to see Ms. Vines in consultation. [id number]/[facility] #: [id number] [place]
[2018-01-14] MEDS ORDERED: Insulin GLARGINE(*) 1 UNITS UNIT SUBCUT ONE (21:00)
[2018-01-14] MEDS: Insulin GLARGINE(*) 1 UNITS UNIT SUBCUT SCH (21:03)
[2018-01-14] MEDS: Atorvastatin* 40 MG TAB PO SCH (21:06)
[2018-01-15] MEDS: Heparin VIAL(*) 5000 UNITS/ML VIAL (FIVE THOUSAND) SUBCUT SCH ×3 (05:45→21:34)
[2018-01-15] MEDS: Insulin LISPRO* 1 UNITS UNIT SUBCUT SCH ×6 (09:32→17:46)
[2018-01-15] MEDS: DULoxetine DR CAP* 30 MG CAP.DR PO SCH ×2 (09:34→21:03)
[2018-01-15] MEDS: Aspirin EC TAB* 81 MG TAB.EC PO SCH (09:34)
[2018-01-15] MEDS: Oxybutynin TAB* 5 MG PO SCH ×2 (09:34→21:03)
[2018-01-15] MEDS: Propranolol TAB* 40 MG PO SCH ×2 (09:34→21:34)
[2018-01-15] MEDS: cefTRIAXone(*) 1 GM in NS 0.9% 50 ML* 50 ML IVPB SCH (09:34)
[2018-01-15] MEDS: OLANzapine TAB* 5 MG PO SCH (09:34)
[2018-01-15] MEDS: Benzonatate CAP* 100 MG PO PRN ×2 (09:35→21:03)
[2018-01-15] MEDS ORDERED: NS 0.9% 250 ML* 250 ML ONE (10:13)
[2018-01-15] MEDS: Azithromycin IV(*) 250 MG in NS 0.9% 250 ML* 250 ML IVPB SCH (10:30)
--- NOTE | 2018-01-15 11:23 | PN ---
Subjective Date of Service: 01/15/18 Interval History: Reports episode of shortness of breath with exertion this morning when washing up resolved with rest and oxygen. Patient reports that she feeling slightly better. breathing has improved a little. Continue with a moist productive cough with green colored sputum. walking o2 saturation decreased to 79% on 4 liters NC, c/o mild dizziness. Denies chest pain. Denies abd pain, n/v/d. Family History: Unchanged from Admission Social History: Unchanged from Admission Past Medical History: Unchanged from Admission Objective Active Medications: Acetaminophen (Tylenol Tab*) 650 mg PO Q4H PRN PRN Reason: FEVER/PAIN Al Hydrox/Mg Hydrox/Simethicone (Maalox Plus*) 30 ml PO Q6H PRN PRN Reason: INDIGESTION Albuterol (Ventolin 2.5 Mg/3 Ml Neb.Gail*) 2.5 mg INH Q2H PRN PRN Reason: SOB/WHEEZING Aspirin (Aspirin Ec Tab*) 81 mg PO DAILY [facility] Last Admin: 01/15/18 09:34 Dose: 81 mg Atorvastatin Calcium (Lipitor*) 40 mg PO BEDTIME [facility] Last Admin: 01/14/18 21:06 Dose: 40 mg Benzonatate (Tessalon Cap*) 200 mg PO TID PRN PRN Reason: COUGH Last Admin: 01/15/18 09:35 Dose: 200 mg Dextrose (D50w Syringe 50 Ml*) 12.5 gm IV PUSH .FOR FS < 60 - SS PRN PRN Reason: FS < 60 Docusate Sodium (Colace Cap*) 100 mg PO BID PRN PRN Reason: CONSTIPATION Duloxetine HCl (Cymbalta Cap*) 60 mg PO BID [facility] Last Admin: 01/15/18 09:34 Dose: 60 mg Heparin Sodium (Porcine) (Heparin Vial(*)) 5,000 units SUBCUT Q8HR [facility] Last Admin: 01/15/18 05:45 Dose: 5,000 units Ceftriaxone Sodium 1 gm/ (Sodium Chloride) 50 mls @ 200 mls/hr IVPB Q24H [facility] Last Admin: 01/15/18 09:34 Dose: 200 mls/hr Azithromycin 250 mg/ Sodium (Chloride) 250 mls @ 250 mls/hr IVPB Q24H [facility] Last Admin: 01/14/18 11:00 Dose: 250 mls/hr Insulin Glargine (Lantus(*)) 15 units SUBCUT Q24H [facility] Last Admin: 01/14/18 21:03 Dose: 15 units Insulin Human Lispro (Humalog*) 0 units SUBCUT AC [facility]; Protocol Last Admin: 01/15/18 09:32 Dose: 4 units Insulin Human Lispro (Humalog*) 0 units SUBCUT AC [facility]; Protocol Last Admin: 01/15/18 09:33 Dose: 2 units Olanzapine (Zyprexa Tab*) 5 mg PO DAILY [facility] Last Admin: 01/15/18 09:34 Dose: 5 mg Ondansetron HCl (Zofran Inj*) 4 mg IV Q4H PRN PRN Reason: NAUSEA/VOMITING Oxybutynin Chloride (Ditropan Tab*) 5 mg PO BID [facility] Last Admin: 01/15/18 09:34 Dose: 5 mg Propranolol HCl (Inderal Tab*) 40 mg PO BID [facility] Last Admin: 01/15/18 09:34 Dose: 40 mg Senna (Senokot Tab*) 1 tab PO BID PRN PRN Reason: CONSTIPATION Vital Signs - 8 hr 01/15/18 01/15/18 07:18 08:00 Temperature 97.7 F Pulse Rate 64 Respiratory 24 24 Rate Blood Pressure 113/48 (mmHg) O2 Sat by Pulse 95 Oximetry Oxygen Devices in Use Now: Nasal Cannula Appearance: appears comfortable sitting on the edge of the bed. Eyes: No Scleral Icterus Ears/Nose/Mouth/Throat: Clear Oropharnyx, Mucous Membranes Moist Neck: NL Appearance and Movements; NL JVP, Trachea Midline Respiratory: Symmetrical Chest Expansion and Respiratory Effort, - - crackles in the bases bilat Cardiovascular: NL Sounds; No Murmurs; No JVD, RRR, No Edema Abdominal: NL Sounds; No Tenderness; No Distention, - - obese Extremities: No Edema, No Clubbing, Cyanosis Skin: No Rash or Ulcers Neurological: Alert and Oriented x 3 Nutrition: Taking PO's Result Diagrams: 01/14/18 06:16 01/14/18 06:16 Microbiology and Other Data: Microbiology 01/14/18 09:55 Legionella Urinary Antigen - Final Urine Negative Legionella Antigen Streptococcus pneumoniae Ag Screen - Final Negative S. pneumo Antigen Assess/Plan/Problems-Billing Assessment: Ms. Vines is a 62 y.o female with a past medical hx significant for DM, HTN, Obesity who presented to the the ER for increased shortness of breath and cough. - Patient Problems (1) SOB (shortness of breath) Current Visit: Yes Status: Acute Code(s): R06.02 - SHORTNESS OF BREATH SNOMED Code(s): 776886210 Comment: - Suspect CAP - continue ceftriaxone and azithromcyin. - Appreciate ID consult. - patient with walking o2 sturation decreasing to 79 % on 4 liters NC - suspect that this could be related to the pneumonia - also suspect some acute on chronic hypoxic respiratory failure- as the patient reports that she has home o2 - states that she only started using the o2 at 2 liters 24 hours a day on thursday. prior to that she was use o2 only at night and as needed for shortness of breath. - suspect she may also have some obsity hypoventilation syndome- patient with a BMI 50.5 -continue o2 at 3 liters (2) Pneumonia Current Visit: Yes Status: Acute Code(s): J18.9 - PNEUMONIA, UNSPECIFIED ORGANISM SNOMED Code(s): 937235416 Comment: - suspect shortness of breath is related to pneumonia - will continue azithromycin and ceftriaxone - will add flutter valve and incentive spirometer - Consulted Dr. Yeung as patient walking o2 saturation is 79% on 3 liters NC, suspect acute on chronic hypoxic respiratory failure, as well as obseity hypoventilation syndrome (3) Diabetes Current Visit: Yes Status: Acute Code(s): E11.9 - TYPE 2 DIABETES MELLITUS WITHOUT COMPLICATIONS SNOMED Code(s): 72904872 Comment: - BGs improved today 137 this AM - HgbA1c 7.2. - Continue lispro SSI coverage and lantus (not on lantus routinely). Glyburide held. (4) Full code status Current Visit: Yes Status: Acute Code(s): Z78.9 - OTHER SPECIFIED HEALTH STATUS SNOMED Code(s): 151998769 Comment: (5) Hyperlipidemia Current Visit: Yes Status: Acute Code(s): E78.5 - HYPERLIPIDEMIA, UNSPECIFIED SNOMED Code(s): 80973030 Comment: - Continue atorvastatin. (6) Hypertension Current Visit: Yes Status: Acute Code(s): I10 - ESSENTIAL (PRIMARY) HYPERTENSION SNOMED Code(s): 45415184 Comment: - SBP 109-127 - Continue propanolol. (7) DVT prophylaxis Current Visit: Yes Status: Acute Code(s): PRC6135 - SNOMED Code(s): 173582225 Comment: - Heparin SQ. (8) Obesity Current Visit: Yes Status: Acute Code(s): E66.9 - OBESITY, UNSPECIFIED SNOMED Code(s): 867299485 Comment: - patient reports seditary lifestyle -does not leave the home- daughter does all of the grocery shopping - recommend nutrition consult Status and Disposition: Inpatient. Anticipate discharge to home when medically.
--- NOTE | 2018-01-15 11:32 | PN ---
Progress Note - Progress Note Date of Service: 01/15/18 SOAP: Subjective: CC: pneumonia HPI: 62 year old woman who is home O2 dependent who developed fever cough and worsening dyspnea and incr O2 requirement. Here she had antibiotics and incr O2 supplement. Her breathing is more comfortable. No chest pain, her cough is productive of blood streaked sputum. Objective: Vital Signs - 24 hr 01/14/18 01/14/18 01/14/18 15:18 19:16 20:00 Temperature 36.7 C 36.8 C Pulse Rate 53 53 Respiratory 24 20 20 Rate Blood Pressure 120/58 126/61 (mmHg) O2 Sat by Pulse 93 94 Oximetry 01/14/18 01/15/18 01/15/18 23:26 07:18 08:00 Temperature 36.7 C 36.5 C Pulse Rate 87 64 Respiratory 20 24 24 Rate Blood Pressure 99/43 113/48 (mmHg) O2 Sat by Pulse 97 95 Oximetry Gen:awake, no distress HEENT: no thrush Heart:RRR no murmur Lungs:decr BS R base no wheeze Abd:+BS NTND soft Skin: no rash MSK: no joint synovitis Laboratory Results - last 24 hr 01/14/18 01/14/18 01/14/18 12:14 12:32 16:54 POC Glucose (mg/dL) 407 H* 393 H Glucose Meter Confirm 427 H 01/15/18 07:45 POC Glucose (mg/dL) 137 H Glucose Meter Confirm Microbiology 01/13/18 17:55 Aerobic Blood Culture - Preliminary Blood Venous No Growth Day 1 Anaerobic Blood Culture - Preliminary No Growth Day 1 01/13/18 18:09 Aerobic Blood Culture - Preliminary Blood Venous No Growth Day 1 Anaerobic Blood Culture - Preliminary No Growth Day 1 01/14/18 09:55 Legionella Urinary Antigen - Final Urine Negative Legionella Antigen Streptococcus pneumoniae Ag Screen - Final Negative S. pneumo Antigen Assessment: 1. Community acquired pneumonia, improving 2. acute on chronic hypoxemic respiratory failure 3. morbid obesity 4. T2 Diabetes mellitus Plan: 1. vantin 200 mg bid and azithro 250 mg daily 3/5 follow up CXR PA and lat in 1 month 25 minutes floor time >50% face to face in counseling and coordinating care with Marcus Guerin NP
[2018-01-15] MEDS ORDERED: Insulin LISPRO* 1 UNITS UNIT SUBCUT ONE (16:59)
[2018-01-15] MEDS: Atorvastatin* 40 MG TAB PO SCH (21:03)
[2018-01-15] MEDS: Insulin GLARGINE(*) 1 UNITS UNIT SUBCUT SCH (21:34)
[2018-01-16] MEDS: Heparin VIAL(*) 5000 UNITS/ML VIAL (FIVE THOUSAND) SUBCUT SCH ×2 (07:11→13:32)
[2018-01-16] MEDS: Insulin LISPRO* 1 UNITS UNIT SUBCUT SCH ×6 (09:00→18:04)
[2018-01-16] MEDS: OLANzapine TAB* 5 MG PO SCH (09:00)
[2018-01-16] MEDS: Oxybutynin TAB* 5 MG PO SCH ×2 (09:00→20:33)
[2018-01-16] MEDS: DULoxetine DR CAP* 30 MG CAP.DR PO SCH ×2 (09:00→20:33)
[2018-01-16] MEDS: Propranolol TAB* 40 MG PO SCH (09:00)
[2018-01-16] MEDS: Aspirin EC TAB* 81 MG TAB.EC PO SCH (09:00)
[2018-01-16] MEDS: cefTRIAXone(*) 1 GM in NS 0.9% 50 ML* 50 ML IVPB SCH (09:02)
[2018-01-16] MEDS: Azithromycin IV(*) 250 MG in NS 0.9% 250 ML* 250 ML IVPB SCH (09:18)
[2018-01-16] MEDS ORDERED: Magnesium Sulfate 2 GM IV* 2 GM/50 ML BAG IVPB ONE (12:14)
--- NOTE | 2018-01-16 12:33 | PN ---
Subjective Date of Service: 01/16/18 Interval History: Continue to c/o of shortness of breath worse with exertion. walking o2 sat today 86 % on 4 liters NC. Denies chest pain or shortness of breath. Denies abd pain n/v/d. Productive cough with brown/blood streaked sputum Family History: Unchanged from Admission Social History: Unchanged from Admission Past Medical History: Unchanged from Admission Objective Active Medications: Acetaminophen (Tylenol Tab*) 650 mg PO Q4H PRN PRN Reason: FEVER/PAIN Last Admin: 01/15/18 17:49 Dose: 650 mg Al Hydrox/Mg Hydrox/Simethicone (Maalox Plus*) 30 ml PO Q6H PRN PRN Reason: INDIGESTION Aspirin (Aspirin Ec Tab*) 81 mg PO DAILY [facility] Last Admin: 01/16/18 09:00 Dose: 81 mg Atorvastatin Calcium (Lipitor*) 40 mg PO BEDTIME [facility] Last Admin: 01/15/18 21:03 Dose: 40 mg Benzonatate (Tessalon Cap*) 200 mg PO TID PRN PRN Reason: COUGH Last Admin: 01/15/18 21:03 Dose: 200 mg Dextrose (D50w Syringe 50 Ml*) 12.5 gm IV PUSH .FOR FS < 60 - SS PRN PRN Reason: FS < 60 Docusate Sodium (Colace Cap*) 100 mg PO BID PRN PRN Reason: CONSTIPATION Duloxetine HCl (Cymbalta Cap*) 60 mg PO BID [facility] Last Admin: 01/16/18 09:00 Dose: 60 mg Heparin Sodium (Porcine) (Heparin Vial(*)) 5,000 units SUBCUT Q8HR [facility] Last Admin: 01/16/18 07:11 Dose: 5,000 units Ceftriaxone Sodium 1 gm/ (Sodium Chloride) 50 mls @ 200 mls/hr IVPB Q24H [facility] Last Admin: 01/16/18 09:02 Dose: 200 mls/hr Azithromycin 250 mg/ Sodium (Chloride) 250 mls @ 250 mls/hr IVPB Q24H [facility] Last Admin: 01/16/18 09:18 Dose: 250 mls/hr Magnesium Sulfate (Magnesium Sulfate 2 Gm Iv*) 2 gm in 50 mls @ 50 mls/hr IVPB ONCE ONE Stop: 01/16/18 13:13 Insulin Glargine (Lantus(*)) 15 units SUBCUT Q24H [facility] Last Admin: 01/15/18 21:34 Dose: 15 units Insulin Human Lispro (Humalog*) 0 units SUBCUT AC [facility]; Protocol Last Admin: 01/16/18 09:00 Dose: 3 units Insulin Human Lispro (Humalog*) 0 units SUBCUT AC [facility]; Protocol Last Admin: 01/16/18 09:00 Dose: 9 units Levalbuterol HCl (Xopenex 1.25 Mg/0.5 Ml Neb.Gail*) 1.25 mg INH Q4H [facility] Olanzapine (Zyprexa Tab*) 5 mg PO DAILY [facility] Last Admin: 01/16/18 09:00 Dose: 5 mg Ondansetron HCl (Zofran Inj*) 4 mg IV Q4H PRN PRN Reason: NAUSEA/VOMITING Oxybutynin Chloride (Ditropan Tab*) 5 mg PO BID [facility] Last Admin: 01/16/18 09:00 Dose: 5 mg Propranolol HCl (Inderal Tab*) 40 mg PO BID [facility] Last Admin: 01/16/18 09:00 Dose: 40 mg Senna (Senokot Tab*) 1 tab PO BID PRN PRN Reason: CONSTIPATION Vital Signs - 8 hr 01/16/18 01/16/18 01/16/18 07:06 07:50 08:00 Temperature 98.4 F 97.6 F Pulse Rate 130 109 Respiratory 18 18 18 Rate Blood Pressure 126/76 118/62 (mmHg) O2 Sat by Pulse 88 88 Oximetry 01/16/18 01/16/18 08:11 08:22 Temperature Pulse Rate 105 70 Respiratory 18 Rate Blood Pressure (mmHg) O2 Sat by Pulse 98 100 Oximetry Oxygen Devices in Use Now: Nasal Cannula Appearance: appears comfortable sitting on the edge of the bed. Mild respiratory distress. Eyes: No Scleral Icterus Ears/Nose/Mouth/Throat: Clear Oropharnyx, Mucous Membranes Moist Neck: NL Appearance and Movements; NL JVP, Trachea Midline Respiratory: Symmetrical Chest Expansion and Respiratory Effort, - - rigth lower lung with rhonchi. diminished on the left. Cardiovascular: NL Sounds; No Murmurs; No JVD Abdominal: NL Sounds; No Tenderness; No Distention Extremities: No Edema, No Clubbing, Cyanosis Skin: No Rash or Ulcers Neurological: Alert and Oriented x 3 Nutrition: Taking PO's Result Diagrams: 01/14/18 06:16 01/16/18 05:00 Microbiology and Other Data: Microbiology 01/14/18 09:55 Legionella Urinary Antigen - Final Urine Negative Legionella Antigen Streptococcus pneumoniae Ag Screen - Final Negative S. pneumo Antigen Assess/Plan/Problems-Billing Assessment: Ms. Vines is a 62 y.o female with a past medical hx significant for DM, HTN, Obesity who presented to the the ER for increased shortness of breath and cough. - Patient Problems (1) SOB (shortness of breath) Current Visit: Yes Status: Acute Code(s): R06.02 - SHORTNESS OF BREATH SNOMED Code(s): 934895747 Comment: - Suspect CAP - continue ceftriaxone and azithromcyin. - Appreciate ID and pulmonary consults. - patient with walking o2 sturation decreased to 86 % on 4 liters NC - suspect that this could be related to the pneumonia - also suspect some acute on chronic hypoxic respiratory failure- as the patient reports that she has home o2 - states that she only started using the o2 at 2 liters 24 hours a day on thursday. prior to that she was use o2 only at night and as needed for shortness of breath. - suspect she may also have some obsity hypoventilation syndome- patient with a BMI 50.5 -continue o2 at 3 liters (2) A-fib Current Visit: Yes Status: Acute Code(s): I48.91 - UNSPECIFIED ATRIAL FIBRILLATION SNOMED Code(s): 68808380 Comment: New onset Afib - will increase propanolol to 60 BID and give a dose of 40 mg now as HR is 110- 120's - Will start xeralto 20 mg daily this evening- discussed patient and family risk and benefits of anticoagulation patient would like to start xeralto- aware that this medication does not have a reversal to stop bleeding, verbalized the understanding of the risks of bleeding and the need to seek medical attention with head injuries or falls. Chadvasc score is 3- giving her a 3.2% risk per year of having a stroke. A score of 3 recommendation is to use anticoagulation with a- fib. (3) Pneumonia Current Visit: Yes Status: Acute Code(s): J18.9 - PNEUMONIA, UNSPECIFIED ORGANISM SNOMED Code(s): 480402768 Comment: - suspect shortness of breath is related to pneumonia - will continue azithromycin and ceftriaxone - will add flutter valve and incentive spirometer - will add xopenox nebs - Consulted Dr. Yeung as patient walking o2 saturation is 86% on 4 liters NC, suspect this is related to pneumonia and acute on chronic hypoxic respiratory failure, as well as obseity hypoventilation syndrome (4) Diabetes Current Visit: Yes Status: Acute Code(s): E11.9 - TYPE 2 DIABETES MELLITUS WITHOUT COMPLICATIONS SNOMED Code(s): 51865693 Comment: - BGs 266 this AM - HgbA1c 7.2. - Continue lispro SSI coverage and lantus (not on lantus routinely). Glyburide held. (5) Hyperlipidemia Current Visit: Yes Status: Acute Code(s): E78.5 - HYPERLIPIDEMIA, UNSPECIFIED SNOMED Code(s): 87308998 Comment: - Continue atorvastatin. (6) Hypertension Current Visit: Yes Status: Acute Code(s): I10 - ESSENTIAL (PRIMARY) HYPERTENSION SNOMED Code(s): 21956775 Comment: - SBP 109-127 - Continue propanolol. (7) Obesity Current Visit: Yes Status: Acute Code(s): E66.9 - OBESITY, UNSPECIFIED SNOMED Code(s): 801790849 Comment: - patient reports seditary lifestyle -does not leave the home- daughter does all of the grocery shopping - recommend nutrition consult outpatient (8) DVT prophylaxis Current Visit: Yes Status: Acute Code(s): PFG0046 - SNOMED Code(s): 772180582 Comment: - Heparin SQ. (9) Full code status Current Visit: Yes Status: Acute Code(s): Z78.9 - OTHER SPECIFIED HEALTH STATUS SNOMED Code(s): 807318093 Comment: Status and Disposition: Inpatient. Anticipate discharge to home when medically.
[2018-01-16 12:37] LABS: EGFR Non-African American 121.4 (>60)
[2018-01-16] MEDS ORDERED: Levalbuterol 1.25MG/0.5ML NEB INH SCH (13:00)
[2018-01-16] MEDS: Levalbuterol 1.25MG/0.5ML NEB INH SCH ×2 (13:21→17:57)
[2018-01-16] MEDS ORDERED: Propranolol TAB* 40 MG PO ONE ×2 (16:10→21:00)
[2018-01-16] MEDS: Rivaroxaban TAB(*) 20 MG TAB PO SCH (18:04)
--- NOTE | 2018-01-16 18:08 | CONS ---
PULMONARY CONSULTATION REPORT: DATE OF CONSULT: 01/16/18 CONSULTATION REQUESTED BY: Carola Guerin NP REASON FOR CONSULT: Evaluation of shortness of breath and hypoxemia. HISTORY OF PRESENT ILLNESS: The patient is a 62-year-old morbidly obese female with history of diabetes, hypertension, obstructive sleep apnea, and possible obesity hypoventilation syndrome, on CPAP and oxygen at night. The patient was brought in for evaluation of worsening shortness of breath for the past few days. The patient reports sick contacts with the grandchildren being sick. She takes care of grandchildren. The patient reports gradually worsening shortness of breath associated with productive cough with yellow to green phlegm. The patient also reported dizziness. The patient denied fevers or chills. The patient also had generalized myalgias, difficulty sleeping through the night, and decided to come into the emergency room. She has denied nausea, vomiting, abdominal pain, diarrhea, urinary complaints, lower extremity swelling. The patient denied episodes of hemoptysis prior to presentation, denied change in weight or loss of appetite. The patient reported having similar episode about a year ago when she was admitted to [facility]. She was hospitalized for 2 days and was discharged with oxygen at home. The patient reports that she sees a metal riveter at [place]. The patient reports that she has been compliant with her CPAP and uses oxygen only with the CPAP at night. The patient reports episodes of choking and aspirating while eating. The patient was seen and examined at bedside. She has been coughing intermittently throughout the course. The patient reports having coughing up phlegm with streaks of blood this morning, which has been going on for a few days now. The patient feels her symptoms are improving. She has less dyspnea currently, cough is also overall improving. She is lying down flat in bed and feels comfortable that way. She has not been using her CPAP since the hospitalization. She does not have significant smoking history, smoked a few cigarettes in her teenage years. Denies any other respiratory illness like asthma, COPD, or recurrent pneumonias other than the prior hospitalization about a year ago, which she is not clear whether it is pneumonia. Further evaluation in the emergency room included chest x-ray and CTA of the chest. I have personally reviewed chest x-ray and CTA of the chest. The patient is noted to have airspace opacities in the right lung on chest x-ray. CTA did not reveal filling defects in pulmonary arteries. She was noted to have dense airspace opacities bilaterally predominantly in the right lower lobe area. No endobronchial lesions that are obvious were noted. The patient also was noted to have significantly dilated esophagus with possible concern for hiatal hernia. The patient of note denies any GERD symptoms. The patient had swallow evaluation in the past that was normal as per the patient. The patient denies any major choking episodes recently. The patient was initiated on treatment for pneumonia with Rocephin and Zithromax. She was given DuoNeb and also 125 mg of Solu-Medrol in the emergency room. The patient was continued on antibiotics. She has been requiring supplemental oxygen at 3 L at rest. She has been more hypoxemic on 3 L with exertion. She was evaluated by Infectious Disease. Current course of antibiotics is considered to be optimal. She did not have elevated white count , does have left shift. She does have poorly controlled blood sugars due to underlying infection. Hemoglobin A1c is elevated at 7.2. Her creatinine is within normal limits. Troponin also within normal limits. PAST MEDICAL HISTORY: 1. Diabetes. 2. Obesity. 3. Hypertension. 4. Obstructive sleep apnea, on CPAP and oxygen at 2 L. 5. Hyperlipidemia. 6. Arthritis. 7. Depression. MEDICATIONS: 1. Propranolol. 2. Oxybutynin. 3. Atorvastatin. 4. Celebrex. 5. Glyburide. 6. Janumet. 7. Olanzapine. 8. Multivitamin. 9. Probiotic. 10. Fiber Gummies. 11. Hydrochlorothiazide. 12. Fenofibrate. 13. Cymbalta. 14. Aspirin. ALLERGIES: No known drug allergies. FAMILY HISTORY: Mother at 55 with complications postop with a PE. Father of unknown reasons. SOCIAL HISTORY: Lives at home with daughter and her grandchildren. Remote history of smoking in teenage years. No alcohol or drug abuse. REVIEW OF SYSTEMS: All 14 systems reviewed and as per HPI. PHYSICAL EXAM: Obese female, lying flat in bed, in no apparent distress. Vital Signs: Temperature 97.6, pulse 70 beats per minute, respiratory rate 18, O2 sat 100% on 4 L, blood pressure 118/62. HEENT: Pupils are equal and reactive to light. Mucous membranes are moist. Lungs: Scattered rhonchi present bilaterally, diminished breath sounds at bases, right greater than left. Cardiac: S1, S2 present. Regular. Abdomen: Obese, bowel sounds present, nontender, nondistended. Extremities: Normal range of motion. Neuro: No focal deficits. Skin: No rash or bruises. DIAGNOSTIC STUDIES/LAB DATA: Sodium 137, potassium 4.0, chloride 99, bicarb 25 , BUN 22, creatinine 0.63, sugar is significantly elevated at 418. WBC count 9.8, hemoglobin 11.4, hematocrit 34, platelet count 294. UA shows 1+ protein, 3 + glucose with no rbc's or wbc's. Chest x-ray and CTA of the chest as described above in HPI. Echocardiogram shows normal systolic function with right ventricular volume overload or pressure overload features, pulmonary hypertension could not be assessed. IMPRESSION AND RECOMMENDATIONS: 62-year-old obese female without significant smoking history and with concern with aspiration in the past admitted with shortness of breath, worsening hypoxemia, found to have bilateral pneumonia, dense on the right lower lobe. Aspiration pneumonia versus community-acquired pneumonia in the setting of recent sick contacts. Hypoxemia secondary to V/Q mismatch from underlying pneumonia and obesity hypoventilation syndrome. Tachycardia and irregular heart rhythm secondary to hypoxemia. The patient also with cough productive with streaks of blood likely from underlying pneumonia. The patient's CT scan findings concerning for possible aspiration pneumonia more than just community-acquired pneumonia. Streptococcus pneumoniae antigen and legionella antigen are negative. Blood cultures negative to date. Sputum cultures were not sent. She is having still thick secretions and frequent cough. She has rhonchi on auscultation. Would recommend bronchodilators p.r.n. Continue with current antibiotics. She is not septic looking. Concern with possible aspiration pneumonia. She was not using CPAP last night and was lying down flat, does have dilated esophagus on CT scan. Denies gastroesophageal reflux disease symptoms. Recommended aspiration precautions. Titrate FiO2 as tolerated. Optimal control of blood sugars. Will need followup CT chest in 6 to 8 weeks to ensure resolution of pneumonia. If changes persist, might need further evaluation. She does have mildly enlarged mediastinal nodes, likely secondary to underlying pneumonia. Would recommend mucus mobilization techniques, flutter device, nebulizer, Mucomyst, chest PT. Out of bed to chair as tolerated. Gastroesophageal reflux disease precautions and aspiration precautions. Thank you for allowing me to participate in the care of your patient. Above recommendations were discussed in detail with Carola Guerin NP. [id number]/CPS #: [id number] [facility] CENTERCindy
[2018-01-16] MEDS: Insulin GLARGINE(*) 1 UNITS UNIT SUBCUT SCH (20:33)
[2018-01-16] MEDS: Atorvastatin* 40 MG TAB PO SCH (20:33)
[2018-01-16] MEDS ORDERED: Propranolol TAB* 60 MG PO SCH (21:00)
[2018-01-17] MEDS: Levalbuterol 1.25MG/0.5ML NEB INH SCH ×4 (01:03→19:12)
[2018-01-17 05:14] LABS: ABS Basophils 0 10^3/ul (0-0.2); ABS Eosinophils 0.4 10^3/ul (0-0.6); ABS Lymphocytes 0.9 10^3/ul (1.0-4.8); ABS Monocytes 0.7 10^3/ul (0-0.8); ABS Neutrophils 6.4 10^3/ul (1.5-7.7); ABS Nucleated RBC 0 10^3/ul; Eosinophil % 4.8 % (0-6); Hematocrit 37 % (35-47); Hemoglobin 12.5 g/dl (12.0-16.0); Mean Corpuscular HGB Conc 34 g/dl (31-36); Mean Corpuscular Hemoglobin 28 pg (27-31); Mean Corpuscular Volume 83 fL (80-97); Nucleated Red Blood Cells % 0; Platelet Count 360 10^3/ul (150-450); Red Blood Count 4.43 10^6/ul (4.00-5.40); Red Cell Distribution Width 15 % (10.5-15); White Blood Count 8.5 10^3/ul (3.5-10.8)
[2018-01-17 05:32] LABS: EGFR Non-African American 121.4 (>60)
[2018-01-17] MEDS ORDERED: Magnesium Sulfate 2 GM IV* 2 GM/50 ML BAG IVPB ONE (07:37)
[2018-01-17] MEDS: Acetylcysteine INHALATION SOL* 200 MG/ML NEB.SOLN 10 ML INH SCH ×3 (07:58→19:13)
[2018-01-17] MEDS: Insulin LISPRO* 1 UNITS UNIT SUBCUT SCH ×6 (08:36→17:56)
[2018-01-17] MEDS: OLANzapine TAB* 5 MG PO SCH (08:38)
[2018-01-17] MEDS: Propranolol TAB* 60 MG PO SCH ×2 (08:38→21:31)
[2018-01-17] MEDS: Aspirin EC TAB* 81 MG TAB.EC PO SCH (08:38)
[2018-01-17] MEDS: DULoxetine DR CAP* 30 MG CAP.DR PO SCH ×2 (08:39→21:30)
[2018-01-17] MEDS: Oxybutynin TAB* 5 MG PO SCH ×2 (08:54→21:31)
[2018-01-17] MEDS: cefTRIAXone(*) 1 GM in NS 0.9% 50 ML* 50 ML IVPB SCH (10:32)
[2018-01-17] MEDS: Azithromycin IV(*) 250 MG in NS 0.9% 250 ML* 250 ML IVPB SCH (11:02)
--- NOTE | 2018-01-17 17:21 | PN ---
Subjective Date of Service: 01/17/18 Interval History: Patient reports cough is improving, states that breath is slightly better but continues to c/o shortness of breath with exertion. Denies chest pain. Denies abd pain, n/v/d. Patient with tachycardia yesterday found to be Afib- started on anticoagulation and increased propranolol - converted to SR today HR in the 70's Family History: Unchanged from Admission Social History: Unchanged from Admission Past Medical History: Unchanged from Admission Objective Active Medications: Acetaminophen (Tylenol Tab*) 650 mg PO Q4H PRN PRN Reason: FEVER/PAIN Last Admin: 01/15/18 17:49 Dose: 650 mg Acetylcysteine (Mucomyst Inhalation Gail*) 400 mg INH [id number] AWAKE [facility] Last Admin: 01/17/18 13:36 Dose: 400 mg Al Hydrox/Mg Hydrox/Simethicone (Maalox Plus*) 30 ml PO Q6H PRN PRN Reason: INDIGESTION Aspirin (Aspirin Ec Tab*) 81 mg PO DAILY [facility] Last Admin: 01/17/18 08:38 Dose: 81 mg Atorvastatin Calcium (Lipitor*) 40 mg PO BEDTIME [facility] Last Admin: 01/16/18 20:33 Dose: 40 mg Benzonatate (Tessalon Cap*) 200 mg PO TID PRN PRN Reason: COUGH Last Admin: 01/15/18 21:03 Dose: 200 mg Dextrose (D50w Syringe 50 Ml*) 12.5 gm IV PUSH .FOR FS < 60 - SS PRN PRN Reason: FS < 60 Docusate Sodium (Colace Cap*) 100 mg PO BID PRN PRN Reason: CONSTIPATION Duloxetine HCl (Cymbalta Cap*) 60 mg PO BID [facility] Last Admin: 01/17/18 08:39 Dose: 60 mg Ceftriaxone Sodium 1 gm/ (Sodium Chloride) 50 mls @ 200 mls/hr IVPB Q24H [facility] Last Admin: 01/17/18 10:32 Dose: 200 mls/hr Azithromycin 250 mg/ Sodium (Chloride) 250 mls @ 250 mls/hr IVPB Q24H [facility] Last Admin: 01/17/18 11:02 Dose: 250 mls/hr Insulin Glargine (Lantus(*)) 15 units SUBCUT Q24H [facility] Last Admin: 01/16/18 20:33 Dose: 15 units Insulin Human Lispro (Humalog*) 0 units SUBCUT [facility]; Protocol Last Admin: 01/17/18 12:48 Dose: 4 units Insulin Human Lispro (Humalog*) 0 units SUBCUT [facility]; Protocol Last Admin: 01/17/18 12:49 Dose: 15 units Levalbuterol HCl (Xopenex 1.25 Mg/0.5 Ml Neb.Gail*) 1.25 mg INH [id number] [facility]WAKE [facility] Last Admin: 01/17/18 13:36 Dose: 1.25 mg Olanzapine (Zyprexa Tab*) 5 mg PO DAILY [facility] Last Admin: 01/17/18 08:38 Dose: 5 mg Ondansetron HCl (Zofran Inj*) 4 mg IV Q4H PRN PRN Reason: NAUSEA/VOMITING Oxybutynin Chloride (Ditropan Tab*) 5 mg PO BID [facility] Last Admin: 01/17/18 08:54 Dose: 5 mg Propranolol HCl (Inderal Tab*) 60 mg PO BID [facility] Last Admin: 01/17/18 08:38 Dose: 60 mg Rivaroxaban (Xarelto(*)) 20 mg PO DAILY@1800 [facility] Last Admin: 01/16/18 18:04 Dose: 20 mg Senna (Senokot Tab*) 1 tab PO BID PRN PRN Reason: CONSTIPATION Vital Signs - 8 hr 01/17/18 01/17/18 01/17/18 11:22 13:38 15:36 Temperature 98.3 F 97.9 F Pulse Rate 127 67 55 Respiratory 18 16 22 Rate Blood Pressure 109/52 121/76 (mmHg) O2 Sat by Pulse 95 92 98 Oximetry Oxygen Devices in Use Now: Nasal Cannula Appearance: appears comfortable , mild respiratory distress Eyes: No Scleral Icterus Ears/Nose/Mouth/Throat: Clear Oropharnyx, Mucous Membranes Moist Neck: NL Appearance and Movements; NL JVP, Trachea Midline Respiratory: Symmetrical Chest Expansion and Respiratory Effort, - - scattered rhonchi 1/2 up on the right , diminished on the left Cardiovascular: NL Sounds; No Murmurs; No JVD, No Edema Abdominal: NL Sounds; No Tenderness; No Distention Extremities: No Edema, No Clubbing, Cyanosis Neurological: Alert and Oriented x 3 Nutrition: Taking PO's Result Diagrams: 01/17/18 05:07 01/17/18 05:07 Microbiology and Other Data: Microbiology 01/14/18 09:55 Legionella Urinary Antigen - Final Urine Negative Legionella Antigen Streptococcus pneumoniae Ag Screen - Final Negative S. pneumo Antigen Assess/Plan/Problems-Billing Assessment: Ms. Vines is a 62 y.o female with a past medical hx significant for DM, HTN, Obesity who presented to the the ER for increased shortness of breath and cough. - Patient Problems (1) SOB (shortness of breath) Current Visit: Yes Status: Acute Code(s): R06.02 - SHORTNESS OF BREATH SNOMED Code(s): 354706437 Comment: - Suspect CAP - continue ceftriaxone and azithromcyin. - Appreciate ID and pulmonary consults. - patient with walking o2 sturation decreased to 86 % on 4 liters NC yesterday- today's is pending - suspect that this could be related to the pneumonia - also suspect some acute on chronic hypoxic respiratory failure- as the patient reports that she has home o2 - states that she only started using the o2 at 2 liters 24 hours a day on thursday. prior to that she was use o2 only at night and as needed for shortness of breath. - suspect she may also have some obsity hypoventilation syndome- patient with a BMI 50.5 -continue o2 titrate to maintain o2 sats above 92% (2) A-fib Current Visit: Yes Status: Acute Code(s): I48.91 - UNSPECIFIED ATRIAL FIBRILLATION SNOMED Code(s): 18183910 Comment: New onset Afib - will increase propranolol to 60 BID- Converted to SR- - Will start xeralto 20 mg daily this evening- discussed patient and family risk and benefits of anticoagulation patient would like to start xeralto- aware that this medication does not have a reversal to stop bleeding, verbalized the understanding of the risks of bleeding and the need to seek medical attention with head injuries or falls. Chadvasc score is 3- giving her a 3.2% risk per year of having a stroke. A score of 3 recommendation is to use anticoagulation with a- fib. Side consult to Dr. Thapa - continue increase dose of propranolol and anticoagulation - patient can f/u with Dr. Thapa as an outpatient . ECHO- The left ventricular chamber size is normal. Mild concentric left ventricular hypertrophy is observed. The estimated ejection fraction is 50-55%. There is septal flattening of the interventricular septum consistent with right ventricular volume or pressure overload. There is NO consistent Doppler evidence of clinically significant diastolic dysfunction. The left atrium is mildly dilated. The right ventricle is mild to moderately dilated. The right atrium is mild to moderately dilated. (3) Pneumonia Current Visit: Yes Status: Acute Code(s): J18.9 - PNEUMONIA, UNSPECIFIED ORGANISM SNOMED Code(s): 794860236 Comment: - suspect shortness of breath is related to pneumonia - will continue azithromycin and ceftriaxone - will add flutter valve and incentive spirometer - will add xopenox nebs - Consulted Dr. Yeung as patient walking o2 saturation is 86% on 4 liters NC, suspect this is related to pneumonia and acute on chronic hypoxic respiratory failure, as well as obseity hypoventilation syndrome (4) Diabetes Current Visit: Yes Status: Acute Code(s): E11.9 - TYPE 2 DIABETES MELLITUS WITHOUT COMPLICATIONS SNOMED Code(s): 08059135 Comment: - BGs 266 this AM - HgbA1c 7.2. - Continue lispro SSI coverage and lantus (not on lantus routinely). Glyburide held. (5) Hyperlipidemia Current Visit: Yes Status: Acute Code(s): E78.5 - HYPERLIPIDEMIA, UNSPECIFIED SNOMED Code(s): 48364760 Comment: - Continue atorvastatin. (6) Hypertension Current Visit: Yes Status: Acute Code(s): I10 - ESSENTIAL (PRIMARY) HYPERTENSION SNOMED Code(s): 16593820 Comment: - SBP 109-120's - Continue propanolol at increased dose (7) Obesity Current Visit: Yes Status: Acute Code(s): E66.9 - OBESITY, UNSPECIFIED SNOMED Code(s): 404810475 Comment: - patient reports seditary lifestyle -does not leave the home- daughter does all of the grocery shopping - recommend nutrition consult outpatient (8) DVT prophylaxis Current Visit: Yes Status: Acute Code(s): URZ3400 - SNOMED Code(s): 322102864 Comment: - Heparin SQ. (9) Hypomagnesemia Current Visit: Yes Status: Acute Code(s): E83.42 - HYPOMAGNESEMIA SNOMED Code(s): 840517344 Comment: Magnesium 1.7 today - will give 2 grams of magnesium (10) Full code status Current Visit: Yes Status: Acute Code(s): Z78.9 - OTHER SPECIFIED HEALTH STATUS SNOMED Code(s): 729306164 Comment: Status and Disposition: Inpatient. Anticipate discharge to home when medically.
[2018-01-17] MEDS: Rivaroxaban TAB(*) 20 MG TAB PO SCH (18:11)
[2018-01-17] MEDS: Atorvastatin* 40 MG TAB PO SCH (21:31)
[2018-01-17] MEDS: Insulin GLARGINE(*) 1 UNITS UNIT SUBCUT SCH (21:32)
[2018-01-18] MEDS: Levalbuterol 1.25MG/0.5ML NEB INH SCH ×3 (01:58→12:57)
[2018-01-18] MEDS: Acetylcysteine INHALATION SOL* 200 MG/ML NEB.SOLN 10 ML INH SCH ×3 (01:58→12:58)
[2018-01-18] MEDS: cefTRIAXone(*) 1 GM in NS 0.9% 50 ML* 50 ML IVPB SCH (09:02)
--- NOTE | 2018-01-18 09:02 | PN ---
Progress Note - Progress Note Date of Service: 01/18/18 SOAP: Subjective: CC: pneumonia HPI: 62 year old woman who is home O2 dependent who developed fever cough and worsening dyspnea and incr O2 requirement. Her breathing is better, ongoing cough, no further blood. No fever, rash, or diarrhea. Objective: Vital Signs Temp 36.5 C 01/18/18 03:37 Pulse 60 01/18/18 07:19 Resp 20 01/18/18 07:19 BP 134/57 01/18/18 03:37 Pulse Ox 95 01/18/18 07:19 Intake & Output 01/17/18 01/18/18 01/18/18 18:59 06:59 18:59 Intake Total 1367 780 Output Total 1200 350 Balance 167 430 Weight 285 lb 6.4 oz Intake: IV Fluids 387 ABX - AZITHROMYCIN 265 ABX - CEFTRIAXONE 57 magnesium 65 Oral 980 780 Output: Urine 1200 350 Other: Estimated Void Medium # Voids 2 Gen:awake, no distress HEENT: no thrush Heart:RRR no murmur Lungs:no wheeze or rales Abd:+BS NTND soft Skin: no rash MSK: no joint synovitis Laboratory Results - last 24 hr 01/17/18 01/17/18 01/17/18 10:55 15:57 20:03 POC Glucose (mg/dL) 359 H 285 H 85 01/18/18 07:28 POC Glucose (mg/dL) 216 H Assessment: 1. Community acquired pneumonia, improving 2. acute on chronic hypoxemic respiratory failure 3. morbid obesity 4. T2 Diabetes mellitus Plan: 1. vantin 200 mg bid day 5/7and follow up CXR PA and lat in 1 month
[2018-01-18] MEDS: OLANzapine TAB* 5 MG PO SCH (09:05)
[2018-01-18] MEDS: Oxybutynin TAB* 5 MG PO SCH (09:05)
[2018-01-18] MEDS: Propranolol TAB* 60 MG PO SCH (09:05)
[2018-01-18] MEDS: Aspirin EC TAB* 81 MG TAB.EC PO SCH (09:06)
[2018-01-18] MEDS: DULoxetine DR CAP* 30 MG CAP.DR PO SCH (09:06)
[2018-01-18] MEDS: Insulin LISPRO* 1 UNITS UNIT SUBCUT SCH ×6 (09:06→17:24)
[2018-01-18] MEDS: Azithromycin IV(*) 250 MG in NS 0.9% 250 ML* 250 ML IVPB SCH (09:56)
[2018-01-18 15:26] VITALS: BP 118/36
[2018-01-18] MEDS ORDERED: Magnesium Sulfate 2 GM IV* 2 GM/50 ML BAG IVPB ONE (16:06)
--- NOTE | 2018-01-18 16:28 | PN ---
Progress Note - Progress Note Date of Service: 01/18/18 - Pulm f/u Note: Pt seen and examined at bedside. Pt reports improvement in breathing. No further episodes of hemoptysis. Cough still continues Active Medications Generic Name Dose Route Start Last Admin Trade Name Freq PRN Reason Stop Dose Admin Acetaminophen 650 mg 01/13/18 20:11 01/15/18 17:49 Tylenol Tab* PO 650 mg Q4H PRN Administration FEVER/PAIN Acetylcysteine 400 mg 01/17/18 08:00 01/18/18 12:58 Mucomyst Inhalation Gail* INH 400 mg [id number] AWAKE SUAD Administration Al Hydrox/Mg Hydrox/Simethicone 30 ml 01/13/18 20:11 Maalox Plus* PO Q6H PRN INDIGESTION Aspirin 81 mg 01/14/18 09:00 01/18/18 09:06 Aspirin Ec Tab* PO 81 mg DAILY SUAD Administration Atorvastatin Calcium 40 mg 01/13/18 21:00 01/17/18 21:31 Lipitor* PO 40 mg BEDTIME SUAD Administration Benzonatate 200 mg 01/14/18 21:22 01/15/18 21:03 Tessalon Cap* PO 200 mg TID PRN Administration COUGH Dextrose 12.5 gm 01/13/18 19:57 D50w Syringe 50 Ml* IV PUSH .FOR FS < 60 - SS PRN FS < 60 Docusate Sodium 100 mg 01/13/18 20:11 Colace Cap* PO BID PRN CONSTIPATION Duloxetine HCl 60 mg 01/13/18 21:00 01/18/18 09:06 Cymbalta Cap* PO 60 mg BID SUAD Administration Ceftriaxone Sodium 1 gm/ 50 mls @ 200 mls/hr 01/14/18 09:00 01/18/18 09:02 Sodium Chloride IVPB 200 mls/hr Q24H SUAD Administration Azithromycin 250 mg/ Sodium 250 mls @ 250 mls/hr 01/14/18 09:00 01/18/18 09: 56 Chloride IVPB 250 mls/hr Q24H SUAD Administration Magnesium Sulfate 2 gm in 50 mls @ 100 mls/hr 01/18/18 16:06 Magnesium Sulfate 2 Gm Iv* IVPB 01/18/18 16:35 ONCE ONE Insulin Glargine 15 units 01/14/18 21:00 01/17/18 21:32 Lantus(*) SUBCUT 15 units Q24H SUAD Administration Insulin Human Lispro 0 units 01/14/18 07:30 01/18/18 13:19 Humalog* SUBCUT 5 units AC SUAD Administration Protocol Insulin Human Lispro 0 units 01/14/18 07:30 01/18/18 13:19 Humalog* SUBCUT 6 units AC SUAD Administration Protocol Levalbuterol HCl 1.25 mg 01/16/18 13:00 01/18/18 12:57 Xopenex 1.25 Mg/0.5 Ml Neb.Gail* INH 1.25 mg [id number] AWAKE SUAD Administration Olanzapine 5 mg 01/14/18 09:00 01/18/18 09:05 Zyprexa Tab* PO 5 mg DAILY SUAD Administration Ondansetron HCl 4 mg 01/13/18 20:11 Zofran Inj* IV Q4H PRN NAUSEA/VOMITING Oxybutynin Chloride 5 mg 01/13/18 21:00 01/18/18 09:05 Ditropan Tab* PO 5 mg BID SUAD Administration Propranolol HCl 60 mg 01/18/18 21:00 Inderal Tab* PO BID SUAD Rivaroxaban 20 mg 01/16/18 18:00 01/17/18 18:11 Xarelto(*) PO 20 mg DAILY@1800 SUAD Administration Senna 1 tab 01/13/18 20:11 Senokot Tab* PO BID PRN CONSTIPATION Vital Signs Temp Pulse Resp BP Pulse Ox 98.1 F 65 16 118/36 94 01/18/18 15:11 01/18/18 15:11 01/18/18 15:11 01/18/18 15:11 01/18/18 15:11 O/E: Pt in NAD HEENT: PERRLA, No JVD Lungs: Diminished air entry, rhonchi + CVS: S1, S2+ Abd: Obese, BS+ Ext: No edema Neuro: NO focal defecits Laboratory Results - last 24 hr 01/14/18 01/17/18 01/18/18 06:16 20:03 07:28 POC Glucose (mg/dL) 85 216 H Magnesium Total Protein (PEP) 6.8 Albumin (PEP) 2.5 L Albumin/Globulin (PEP) 0.58 Bjccz-3-Xpjbiokmw 0.7 H Qwbia-1-Txfmcfhxk 1.1 H Xyge-4-Jzytrolp 1.3 H Gamma Globulins 1.2 PEP Impression See comment 01/18/18 01/18/18 12:13 14:56 POC Glucose (mg/dL) 213 H Magnesium 1.7 L Total Protein (PEP) Albumin (PEP) Albumin/Globulin (PEP) Zsbkm-8-Sdhauzzcl Cqcyj-6-Wlbepzmtz Xavv-6-Cdqvozcz Gamma Globulins PEP Impression 62 y o obese f, former smoker with h/o TEMITOPE on CPAP and O2 a/w PNA, worsening hypoxia sec to V/Q mismatch Pt improving clinically. Has significant air space opacity in RLL. Has h/o aspiration PNA which is also possibility Mildly enlarged mediastinal nodes likely sec to PNA and vascular congestion Hemoptysis resolved Abx as per ID C/w CPAP at night Will need f/u CT chest in 6-8 weeks to ensure resolution of air space opacities D/w Marcus Guerin NP
--- NOTE | 2018-01-18 16:30 | PN ---
Subjective Date of Service: 01/18/18 Interval History: Patient reports that she is feeling better, states that shortness of breath is improving . Denies chest pain. Denies abd pain n/v/d. Walking o2 saturation on 3 liters 90-92 % Family History: Unchanged from Admission Social History: Unchanged from Admission Past Medical History: Unchanged from Admission Objective Active Medications: Acetaminophen (Tylenol Tab*) 650 mg PO Q4H PRN PRN Reason: FEVER/PAIN Last Admin: 01/15/18 17:49 Dose: 650 mg Acetylcysteine (Mucomyst Inhalation Gail*) 400 mg INH [id number] AWAKE [facility] Last Admin: 01/18/18 12:58 Dose: 400 mg Al Hydrox/Mg Hydrox/Simethicone (Maalox Plus*) 30 ml PO Q6H PRN PRN Reason: INDIGESTION Aspirin (Aspirin Ec Tab*) 81 mg PO DAILY [facility] Last Admin: 01/18/18 09:06 Dose: 81 mg Atorvastatin Calcium (Lipitor*) 40 mg PO BEDTIME [facility] Last Admin: 01/17/18 21:31 Dose: 40 mg Benzonatate (Tessalon Cap*) 200 mg PO TID PRN PRN Reason: COUGH Last Admin: 01/15/18 21:03 Dose: 200 mg Dextrose (D50w Syringe 50 Ml*) 12.5 gm IV PUSH .FOR FS < 60 - SS PRN PRN Reason: FS < 60 Docusate Sodium (Colace Cap*) 100 mg PO BID PRN PRN Reason: CONSTIPATION Duloxetine HCl (Cymbalta Cap*) 60 mg PO BID [facility] Last Admin: 01/18/18 09:06 Dose: 60 mg Ceftriaxone Sodium 1 gm/ (Sodium Chloride) 50 mls @ 200 mls/hr IVPB Q24H [facility] Last Admin: 01/18/18 09:02 Dose: 200 mls/hr Azithromycin 250 mg/ Sodium (Chloride) 250 mls @ 250 mls/hr IVPB Q24H [facility] Last Admin: 01/18/18 09:56 Dose: 250 mls/hr Magnesium Sulfate (Magnesium Sulfate 2 Gm Iv*) 2 gm in 50 mls @ 100 mls/hr IVPB ONCE ONE Stop: 01/18/18 16:35 Insulin Glargine (Lantus(*)) 15 units SUBCUT Q24H [facility] Last Admin: 01/17/18 21:32 Dose: 15 units Insulin Human Lispro (Humalog*) 0 units SUBCUT [facility]; Protocol Last Admin: 01/18/18 13:19 Dose: 5 units Insulin Human Lispro (Humalog*) 0 units SUBCUT [facility]; Protocol Last Admin: 01/18/18 13:19 Dose: 6 units Levalbuterol HCl (Xopenex 1.25 Mg/0.5 Ml Neb.Gail*) 1.25 mg INH [id number] AWAKE [facility] Last Admin: 01/18/18 12:57 Dose: 1.25 mg Olanzapine (Zyprexa Tab*) 5 mg PO DAILY [facility] Last Admin: 01/18/18 09:05 Dose: 5 mg Ondansetron HCl (Zofran Inj*) 4 mg IV Q4H PRN PRN Reason: NAUSEA/VOMITING Oxybutynin Chloride (Ditropan Tab*) 5 mg PO BID [facility] Last Admin: 01/18/18 09:05 Dose: 5 mg Propranolol HCl (Inderal Tab*) 60 mg PO BID [facility] Rivaroxaban (Xarelto(*)) 20 mg PO DAILY@1800 [facility] Last Admin: 01/17/18 18:11 Dose: 20 mg Senna (Senokot Tab*) 1 tab PO BID PRN PRN Reason: CONSTIPATION Vital Signs - 8 hr 01/18/18 01/18/18 01/18/18 12:59 13:02 15:11 Temperature 98.1 F Pulse Rate 64 96 65 Respiratory 18 68 16 Rate Blood Pressure 118/36 (mmHg) O2 Sat by Pulse 97 18 94 Oximetry Oxygen Devices in Use Now: Nasal Cannula Appearance: appears comfortable sitting on the edge of the bed. no acute distress. Eyes: No Scleral Icterus Ears/Nose/Mouth/Throat: Clear Oropharnyx, Mucous Membranes Moist Neck: NL Appearance and Movements; NL JVP, Trachea Midline Respiratory: Symmetrical Chest Expansion and Respiratory Effort, - - rhonchi up 1/2 on the right Cardiovascular: NL Sounds; No Murmurs; No JVD, No Edema Abdominal: NL Sounds; No Tenderness; No Distention Extremities: No Edema, No Clubbing, Cyanosis Skin: No Rash or Ulcers, No Nodules or Sclerosis Neurological: Alert and Oriented x 3 Nutrition: Taking PO's Result Diagrams: 01/17/18 05:07 01/17/18 05:07 Microbiology and Other Data: Microbiology 01/14/18 09:55 Legionella Urinary Antigen - Final Urine Negative Legionella Antigen Streptococcus pneumoniae Ag Screen - Final Negative S. pneumo Antigen Assess/Plan/Problems-Billing Assessment: Ms. Vines is a 62 y.o female with a past medical hx significant for DM, HTN, Obesity who presented to the the ER for increased shortness of breath and cough. - Patient Problems (1) SOB (shortness of breath) Status: Acute Code(s): R06.02 - SHORTNESS OF BREATH SNOMED Code(s): 401728860 Comment: - Suspect CAP - will discontinue azithromycin course completed will change ceftriaxone to vantin 200 mg BID for 2 more days -to complete 7 day course. - Appreciate ID and pulmonary consults. - patient with walking o2 sturation 90-92% liters NC today - suspect that this could be related to the pneumonia - also suspect some acute on chronic hypoxic respiratory failure- as the patient reports that she has home o2 - states that she only started using the o2 at 2 liters 24 hours a day on thursday. prior to that she was use o2 only at night and as needed for shortness of breath. - suspect she may also have some obsity hypoventilation syndome- patient with a BMI 50.5 -will go home on o2 3 liters nc continuous (2) A-fib Status: Acute Code(s): I48.91 - UNSPECIFIED ATRIAL FIBRILLATION SNOMED Code( s): 36716240 Comment: New onset Afib - will resume home dose of propranolol- patient in SR. - Will start xeralto 20 mg daily this evening- discussed patient and family risk and benefits of anticoagulation patient would like to start xeralto- aware that this medication does not have a reversal to stop bleeding, verbalized the understanding of the risks of bleeding and the need to seek medical attention with head injuries or falls. Chadvasc score is 3- giving her a 3.2% risk per year of having a stroke. A score of 3 recommendation is to use anticoagulation with a- fib. Side consult to Dr. Thapa - continue increase dose of propranolol and anticoagulation - patient can f/u with Dr. Thapa as an outpatient . Patient was instructed not to take celebrex or asa while taking xarelto. (3) Pneumonia Status: Acute Code(s): J18.9 - PNEUMONIA, UNSPECIFIED ORGANISM SNOMED Code(s ): 966405487 Comment: - suspect shortness of breath is related to pneumonia - will d/c azithromycin - course completed change ceftriaxone to vantin 200mg PO BID for 2 days to finish 7 day course of antibiotics - will add flutter valve and incentive spirometer - will add xopenox nebs - Consulted Dr. Yeung as patient walking o2 saturation is 86% on 4 liters NC, suspect this is related to pneumonia and acute on chronic hypoxic respiratory failure, as well as obseity hypoventilation syndrome (4) Diabetes Status: Acute Code(s): E11.9 - TYPE 2 DIABETES MELLITUS WITHOUT COMPLICATIONS SNOMED Code(s): 69722789 Comment: - BGs 123-216 today - HgbA1c 7.2. - will resume home medications - sure follow up with PMD for further management of diabetes (5) Hyperlipidemia Status: Acute Code(s): E78.5 - HYPERLIPIDEMIA, UNSPECIFIED SNOMED Code(s): 18428484 Comment: - Continue atorvastatin. (6) Hypertension Status: Acute Code(s): I10 - ESSENTIAL (PRIMARY) HYPERTENSION SNOMED Code(s) : 80115164 Comment: - SBP 109-120's - change propranolol to home dosing - HR in the 50's (7) Obesity Status: Acute Code(s): E66.9 - OBESITY, UNSPECIFIED SNOMED Code(s): 296209997 Comment: - patient reports seditary lifestyle -does not leave the home- daughter does all of the grocery shopping - recommend nutrition consult outpatient (8) DVT prophylaxis Status: Acute Code(s): BGJ8645 - SNOMED Code(s): 343935592 Comment: - Heparin SQ. (9) Hypomagnesemia Status: Acute Code(s): E83.42 - HYPOMAGNESEMIA SNOMED Code(s): 159259800 Comment: Magnesium 1.7 today - will give 2 grams of magnesium today - will start magnesium oxide 400 mg BID and repeat magnesium on thursday as outpatient (10) Full code status Status: Acute Code(s): Z78.9 - OTHER SPECIFIED HEALTH STATUS SNOMED Code(s) : 593925430 Comment: Status and Disposition: discharge home
[2018-01-18] MEDS: Rivaroxaban TAB(*) 20 MG TAB PO SCH (17:19)
[2018-01-18] MEDS ORDERED: Propranolol TAB* 20 MG PO SCH (21:00)
--- NOTE | 2018-01-19 17:44 | DS ---
CC: Daria Pierre NP * DISCHARGE SUMMARY: DATE OF ADMISSION: 01/13/18 DATE OF DISCHARGE: 01/18/18 PROVIDER: Carola Guerin NP ATTENDING PHYSICIAN: Dr. Rebecca Lynch * (dictated by Carola Guerin NP). PRIMARY CARE PROVIDER: Daria Pierre NP, at [facility]. PRIMARY DIAGNOSES: 1. Pneumonia. 2. Atrial fibrillation, new onset. 3. Low magnesium. SECONDARY DIAGNOSES: 1. Diabetes. 2. Hypertension. 3. Obstructive sleep apnea. 4. Hyperlipidemia. 5. Arthritis. 6. Depression. STUDIES COMPLETED WHILE IN THE HOSPITAL: The patient had a chest x-ray on 01/13. Radiologist's impression: Depending on the patient's presentation, chest x-ray findings can be consistent with cardiogenic pulmonary edema versus multifocal pneumonia. She had an electrocardiogram on 01/13/18, which showed sinus rhythm at a rate of 62. She then had a repeat electrocardiogram on 01/16/18 which showed atrial fibrillation at a rate of 108. She had a CTA of the chest. Radiologist's impression: No visible acute pulmonary embolism, but this is a limited evaluation, segmental branches of the artery because of respiratory motion artifact. There are bilateral lung opacities particularly in the right lower lobe suspicious for pneumonitis versus pulmonary edema. There is mild mediastinal lymphadenopathy. She had a transthoracic echocardiogram on 01/13/18. Conclusion: The left ventricular chamber size is normal. Mild concentric left ventricular hypertrophy is observed. The estimated ejection fraction is 50% to 55%. There is septal flattening in the interventricular septum consistent with right ventricular volume or pressure overload. There is no consistent Doppler evidence of clinically significant diastolic dysfunction. The left atrium is mildly dilated. The right ventricle is mild to moderately dilated. The right atrium is mild to moderately dilated. There is mild aortic stenosis. There is trace mitral regurgitation. There is no evidence of tricuspid valve regurgitation. Unable to estimate the right ventricular systolic pressure. There is mild dilation of the ascending aorta. DISCHARGE MEDICATIONS: New home medications: 1. Vantin 200 mg p.o. b.i.d. x2 days. 2. Xopenex 1.25 mg nebulizer 1 neb q.6 hours as needed for shortness of breath. 3. Magnesium oxide 400 mg p.o. b.i.d. 4. Xarelto 20 mg p.o. daily. Continued home medications: 1. Aspirin 81 mg p.o. daily. 2. Atorvastatin 40 mg p.o. daily. 3. Celebrex 100 mg p.o. b.i.d. 4. Cymbalta 60 mg p.o. b.i.d. 5. TriCor 145 mg p.o. daily. 6. Glyburide 5 mg p.o. daily. 7. Fiber Gummies 2 tabs p.o. b.i.d. 8. Probiotic 1 p.o. daily. 9. Multivitamin 1 p.o. daily. 10. Zyprexa 5 mg p.o. daily. 11. Oxybutynin 5 mg p.o. b.i.d. 12. Propranolol 40 mg p.o. b.i.d. 13. Janumet 500/1000 tablet, 1 tablet p.o. b.i.d. Discontinued medications: 1. Celebrex 100 mg p.o. b.i.d. 2. Aspirin 81 mg daily. HISTORY OF PRESENT ILLNESS AND HOSPITAL COURSE: Ms. Vines is a 62-year- old female with past medical history significant for diabetes, hypertension, obstructive sleep apnea, who presented to the emergency room from Urgent Care with shortness of breath over the past 2 days. The patient states that approximately a year and a half ago, she had a similar episode and became short of breath and was admitted to [facility] and said to have a pneumonia or a COPD. The patient was discharged home on oxygen at that time. She has not needed oxygen since that hospitalization; however, in the past 2 days, she has been short of breath and dizzy, and today, it was worse and she had shortness of breath at rest. She has had a productive cough with recent sick contacts, her grandchildren have also been sick. The patient states that she has had no known choking episodes or aspiration of food. The patient reports that she had a swallowing evaluation several years ago that was unremarkable. The patient had oxygen from her prior admission so she started using her oxygen again on Thursday prior to her admission. Last evening, she had body aches and felt like needles and pins, difficulty to sleep, and somewhat resolved this morning. No fever or chills. No nausea, vomiting, or diarrhea. No abdominal pain, no urinary symptoms. No changes in her weight. While in the emergency room, the patient had labs and imaging. She received Solu- Medrol 125 mg, magnesium 2 g, ceftriaxone and azithromycin antibiotics, aspirin 300, DuoNeb, and referred for further evaluation. The patient was admitted for right lower lobe pneumonia. During her hospitalization, the patient remained short of breath which progressively worsened with exertion. The patient had a walking O2 saturation initially on 4L nasal cannula at 79%. The next day, it improved to 86% on 4 L nasal cannula. She continued to have shortness of breath with exertion. The patient remained on azithromycin and ceftriaxone throughout the hospitalization. She did receive a whole course of IV azithromycin and received 5 days of ceftriaxone during this hospitalization. Due to her continued symptoms of shortness of breath, she was monitored. On the day of discharge, the patient states that she is feeling well. She feels that her breathing is baseline. Her cough has improved; it is less productive. She denies any hemoptysis at this time. She did have hemoptysis during this hospitalization that has resolved. She states that it is now pale yellow and continues to have thick mucus. She was given a flutter valve and she was instructed to use a flutter valve at home q.4 hours to help bring up her secretions. On the day of discharge, her walking O2 saturation on 3 L of oxygen nasal cannula was 90% to 92%. The patient was instructed to continue oxygen at home continuously. At this time, she is stable for discharge home. During the hospitalization, she did have an episode of rapid atrial fibrillation. At that time, her propranolol was increased to 60 mg p.o. b.i.d. She did convert back to sinus rhythm at a rate of 50s to 60s. Her propranolol dose was again decreased to 40 p.o. b.i.d. She was also started on Xarelto. She should follow up with Cardiology for further management and evaluation of acute new-onset atrial fibrillation. Vital signs are as follows: Temperature was 98.1, heart rate was 65, respirations , and O2 saturation 94% on 3 L nasal cannula, and blood pressure 118/36. DISCHARGE PLAN: Ms. Vines will be discharged home. Activity as tolerated. She should continue on a heart-healthy, low-sodium, diabetic diet. 1. Pneumonia. She should continue on Vantin 200 mg p.o. b.i.d. x2 more days. She can continue Xopenex nebulizer 1.25 mg q.6 hours as needed for shortness of breath. She should follow up with Dr. Benitez in 1 month. She will need a repeat imaging of her chest. Dr. Benitez has recommended a repeat CT scan of her chest in 6 to 8 weeks. 2. Atrial fibrillation. The patient should continue on her propranolol 40 mg p.o. b.i.d. She will need to continue on Xarelto 20 mg p.o. daily until further followup with Cardiology as an outpatient. 3. Diabetes. Her blood sugars were elevated during this hospitalization. Initially, they were elevated, I suspect, from the steroid treatments that she received; it did come down. She did receive Lantus during the hospitalization. I will discontinue her insulin coverage and place her back on her home Janumet medication as previously prescribed. The patient should follow up with her primary care provider for further management of her diabetes as her A1c during this hospitalization was 7.2. 4. Hypertension. She will continue on her propranolol. 5. She had hypomagnesium. The patient was given magnesium runs during this hospitalization. She will be discharged on magnesium oxide 400 mg p.o. b.i.d. She needs to follow up and have a repeat magnesium level drawn on 01/21/18. The patient should stop taking Celebrex as this can increase her risk of bleeding as she has been started on Xarelto. She should also stop taking aspirin as this again can also increase her risk of bleeding. The patient was instructed to return to the emergency room for any chest pain or shortness of breath or any worsening of her symptoms. She should follow up with Dr. Thapa in 4 to 7 days for further evaluation of her new-onset atrial fibrillation and anticoagulation. She should follow up with her primary care provider again for new-onset AFib and pneumonia followup. She needs to have her magnesium level repeated as this was low during her hospitalization and can contribute to cardiac arrhythmias. She should follow up with Dr. Benitez in 1 month. This is a summarization of her hospitalization. For further details, please obtain the entire medical record. TIME SPENT: Time spent on this discharge was 60 minutes, greater than half that time spent with the patient discussing discharge plans and instructions. I also advised her daughter of all these discharge plans prior to discharge. I have discussed this with my attending, Dr. Rebecca Lynch, and she is in agreement with my plan. CONDITION ON DISCHARGE: Stable. CAROLA GUERIN, PROCUREMENT FORESTER [id number]/CPS #: [id number] [facility]ARE SYSTEMCindy
== END 2018-01-18 18:00 | disposition home or self-care (01) | DRG 139 ==
LOC: ED 17:04 → MEDTELE 20:11
PROVIDERS: ADMIT Pediatrics; ATTEND Internal Medicine
CPT/HCPCS: 36415; 71045; 71275; 80048; 80053; 80061; 81003; 81015; 82550; 82553; 82947; 83036; 83690; 83735; 83880; 84155; 84165; 84443; 84484; 85025; 85379; 85610; 85730; 86140; 87040; 87086; 87899; 93005; 93306; 94640; 94660; A9270-GY; J0456; J0696; J1644; J2930; J3475; J3490; J7512; Q9967

== ENCOUNTER 2023-08-11 09:29 | Observation (INO) ==
[2023-08-11 10:23] LABS: ABS Eosinophils 0.1 10^3/uL (0.0-0.5); ABS Monocytes 0.6 10^3/uL (0.0-0.9); ABS Neutrophils 7.9 10^3/uL (1.5-7.6); Eosinophil % 1.2 %; Hematocrit 42.7 % (35-45); Hemoglobin 14.2 g/dL (11.5-14.3); Lymphocyte % 10.7 %; Mean Corpuscular Hemoglobin 28.5 pg (27-33); Mean Corpuscular Hgb Conc 33.3 g/dL (31-36); Mean Corpuscular Volume 85.5 fL (80-97); Mean Platelet Volume 8.7 fL (7.5-11.2); Platelet Count 304 10^3/uL (150-450); Red Cell Distribution Width 13.7 % (12-17); White Blood Count 9.6 10^3/uL (3.8-11.8)
[2023-08-11 10:32] LABS: INR 1.07 (0.83-1.13)
[2023-08-11 11:14] LABS: Albumin 4.2 g/dL (3.2-5.2); Albumin/Globulin Ratio 1.5 (1-3); Calcium 9.4 mg/dL (8.6-10.3); Creatinine, Serum 0.7 mg/dL (0.51-0.95); Globulin 2.8 g/dL (2-4); Magnesium 1.4 mg/dL (1.9-2.7); Total Bilirubin 0.8 mg/dL (0.2-1.0); eGFR CKD-EPI 93.6 (>60)
[2023-08-11 11:48] LABS: High Sensitivity Troponin 1 Hr 21 pg/mL (<15)
[2023-08-11] MEDS: Lactated Ringers 1000 ml BAG 1,000 ML IV ONE (12:57)
[2023-08-11] MEDS: Potassium Chlor 20 meq TAB.ER PO ONE (12:57)
[2023-08-11] MEDS: Magnesium Sulfate 2 gm BAG 2 GM/50 ML BAG IVPB ONE (13:06)
[2023-08-11] MEDS: Metoprolol Tartrate 5 mg VIAL 5 ml VIAL (1 mg/ml) IV ONE (15:46)
[2023-08-11] MEDS ORDERED: Metoprolol Tartrate 5 mg VIAL 5 ml VIAL (1 mg/ml) IV PRN (16:33)
[2023-08-11] MEDS ORDERED: Dextrose 50% Syringe 50 ml 25 GM/50 ML SYRINGE IV PUSH PRN (16:43)
[2023-08-11 16:44] LABS: TSH Ultra Thyroid Stim Horm 3.12 mcIU/mL (0.34-5.60)
[2023-08-11] MEDS: Furosemide 20 mg/2 ml IV VIAL IV SLOW PU ONE (17:44)
[2023-08-11] MEDS: DULoxetine DR 60 mg CAP PO SCH (20:59)
[2023-08-11] MEDS ORDERED: Metformin ER 500 mg TAB (NF) PO SCH (21:00)
[2023-08-12 05:54] LABS: ABS Basophils 0.1 10^3/uL (0.0-0.1); ABS Eosinophils 0.2 10^3/uL (0.0-0.5); ABS Lymphocytes 1.4 10^3/uL (1.0-4.8); ABS Monocytes 0.5 10^3/uL (0.0-0.9); Eosinophil % 2.7 %; Hematocrit 36.8 % (35-45); Hemoglobin 12.4 g/dL (11.5-14.3); Lymphocyte % 16.7 %; Mean Corpuscular Hemoglobin 28.6 pg (27-33); Mean Corpuscular Hgb Conc 33.6 g/dL (31-36); Mean Corpuscular Volume 85.1 fL (80-97); Mean Platelet Volume 8.4 fL (7.5-11.2); Platelet Count 227 10^3/uL (150-450); Red Blood Count 4.33 10^6/uL (3.63-4.92); Red Cell Distribution Width 13.7 % (12-17); White Blood Count 8.2 10^3/uL (3.8-11.8)
[2023-08-12 08:47] LABS: Anion Gap 10 mmol/L (2-16); Blood Urea Nitrogen 7 mg/dL (6-24); CO2 Carbon Dioxide 30 mmol/L (22-32); Calcium 8.3 mg/dL (8.6-10.3); Chloride 105 mmol/L (101-111); Creatinine, Serum 0.51 mg/dL (0.51-0.95); Glucose 173 mg/dL (70-100); Sodium 145 mmol/L (135-145)
[2023-08-12] MEDS ORDERED: Sulfur Hexaflouride MICROSPHR 25 MG VIAL ONE (09:51)
[2023-08-12] MEDS: KCL 20 MEQ/100 ML IVPREMIX 20 MEQ/100 ML BAG IV SCH (12:58)
[2023-08-12] MEDS: Furosemide 20 mg/2 ml IV VIAL IV SLOW PU SCH (12:58)
[2023-08-12 14:13] VITALS: BP 138/72
[2023-08-12] MEDS: Potassium Chlor 20 meq TAB.ER PO ONE (15:33)
[2023-08-12 17:09] LABS: Calcium 8.7 mg/dL (8.6-10.3); Creatinine, Serum 0.54 mg/dL (0.51-0.95); Magnesium 1.5 mg/dL (1.9-2.7); Potassium 3.5 mmol/L (3.5-5.0); eGFR CKD-EPI 99.6 (>60)
== END 2023-08-12 18:05 | disposition home or self-care (01) ==
LOC: ED 09:29 → EDHOLD 09:29 → MEDTELE 08-12 08:14
PROVIDERS: ADMIT Student in an Organized Health Care Education/Training Program; ATTEND Student in an Organized Health Care Education/Training Program